=== PATIENT | male | born 1990 | race Caucasian/White ===

== ENCOUNTER 2020-10-31 08:21 | Emergency (ER) | payer MEDICAID, SELFPAY ==
--- NOTE | ~2020-10-31 | XR_ITS ---
EXAMINATION: XR CHEST CLINICAL INFORMATION: Coughing. COMPARISON: None TECHNIQUE: Frontal view of the chest was obtained. FINDINGS: The lungs are well-expanded and clear of acute process. The heart size and pulmonary vascularity is normal. No gross bony abnormality seen. XR/XR chest 1V IMPRESSION: Unremarkable chest exam.
--- NOTE | ~2020-10-31 | CT_ITS ---
EXAMINATION: CT ANGIOGRAM OF THE CHEST WITH AND WITHOUT CONTRAST (CT PULMONARY ANGIOGRAM FOR PE) CLINICAL INFORMATION: Reason for Exam Cough. elevated D-dimer. PE? COMPARISON: Previous chest x-ray from earlier the same day TECHNIQUE: Prior to contrast administration, noncontrast localization images were obtained. Subsequently, multidetector volumetric imaging was performed from the thoracic inlet to below the diaphragms following the administration of 65 mL Omnipaque 350 intravenous contrast. No contrast reaction reported Sagittal, coronal, and MIP oblique sagittal reformatted images were obtained on the CT workstation, uploaded to PACS, and reviewed. This CT examination was performed using dose optimization techniques as appropriate, variously including the following: *Automated exposure control *Adjustment of mA and/or kV according to patient size (this includes techniques or standardized protocols for targeted exams where dose is matched to indication/reason for exam; i.e. extremities or head) *Use of iterative reconstruction technique Total exam dose-length product 391 mGy-cm FINDINGS: QUALITY OF STUDY/CONTRAST BOLUS: Satisfactory. PULMONARY ARTERIES: No central or segmental pulmonary emboli. THORACIC AORTA: No aneurysm or dissection. LUNG: No focal consolidation, nodules or masses. PLEURA: No pleural effusion or pneumothorax. MEDIASTINUM: Normal heart size. No pericardial effusion. No hilar or mediastinal lymphadenopathy. No evidence of septal bowing or right heart strain. CHEST WALL/AXILLA: No axillary or internal mammary lymphadenopathy. OSSEOUS STRUCTURES: No acute or suspicious osseous abnormality. UPPER ABDOMEN: Unremarkable. No reflux of contrast into the hepatic veins to suggest elevated right heart pressures. CT/CT angio chest PE protocol IMPRESSION: No evidence of pulmonary embolism. VTE: negative
[2020-10-31 08:24] VITALS: BP 110/76; PULSE 84; RESP 18; TEMP 35.8; O2SAT 98; BMI 27.3
--- NOTE | 2020-10-31 09:56 | ECG_ITS ---
Test Reason : ASTHMA Blood Pressure : / mmHG Vent. Rate : 065 BPM Atrial Rate : 065 BPM P-R Int : 168 ms QRS Dur : 096 ms QT Int : 432 ms P-R-T Axes : 056 058 055 degrees QTc Int : 449 ms Normal sinus rhythm Normal ECG No significant changes when compared with the previous EKG of 13 nov 2018 Referred By: Dominguez Tovar Electronically Signed By:JOSH BRAUN
[2020-10-31] MEDS: Magnesium Sulfate/H2O 2 GM/50 ML PIGGYBACK IV (10:21)
[2020-10-31] MEDS: methylPREDNISolone Sod Succ 125 MG/2 ML VIAL IVPUSH (10:21)
--- NOTE | 2020-10-31 10:22 | ED.ASTHMA ---
HPI - Asthma General Chief Complaint: Asthma Stated Complaint: asthma Time Seen by Provider: 10/31/20 09:56 Source: patient Mode of arrival: ambulatory Limitations: no limitations History of Present Illness HPI Narrative: Patient presents to the ED for coughing for the past 3 days for shortness of breath. Patient states history of asthma and no relief with albuterol inhaler. Patient denies any fever, chills, swelling of lower extremities, calf pain. Patient is not vaccinated against the COVID-19 virus. Patient states history of asthma, but never intubated. Patient admitted for asthma last year Related Data Previous Rx's Medication Instructions Recorded albuterol sulfate 2 puff INHALATION Q6H PRN #8.5 g 10/31/20 albuterol sulfate 2.5 mg INHALATION QID PRN #75 ml 10/31/20 benzonatate [Tessalon Perles] 100 mg PO TID PRN #18 cap 10/31/20 prednisone 40 mg PO DAILY 5 Days #10 tab 10/31/20 Allergies Allergy/AdvReac Type Severity Reaction Status Date / Time No Known Allergies Allergy Verified 10/31/20 08:23 [No Known Allergies*] Review of Systems Review of Systems: Yes all other systems are reviewed and are negative Constitutional: Constitutional: Reports as per HPI and Reports no additional constitutional complaints Eyes: Eyes: Reports as per HPI and Reports no additional eye complaints ENT: Reports system reviewed and no additional complaints, except as documented and Reports as per HPI Cardiovascular: Cardiovascular: Reports as per HPI and Reports no additional cardiovascular complaints Respiratory: Respiratory: Reports as per HPI, Reports no additional respiratory complaints and Reports cough Gastrointestinal: Gastrointestinal: Reports as per HPI and Reports no additional gastrointestinal complaints Genitourinary: Genitourinary: Reports no additional male genitourinary complaints and Reports as per HPI Musculoskeletal: Musculoskeletal: Reports no additional musculoskeletal complaints and Reports as per HPI Neurologic: Reports system reviewed and no additional complaints, except as documented and Reports as per HPI Psychiatric: Psychiatric: Reports no additional psychiatric complaints and Reports as per HPI PMFSH Past Medical History Medical History (Updated 10/31/20 @ 14:18 by IRVIN Neumann) Asthma Social History Social History Advance Directives: Yes Advance Directives Information Provided: Yes Advance Directives on File: No Physical Exam Vital Signs: Vital Signs: Last Vital Signs Temp 96.4 F L 10/31/20 08:24 Pulse 78 07/26/21 14:00 Resp 18 10/31/20 14:00 BP 110/76 10/31/20 08:24 Pulse Ox 98 10/31/20 14:00 Body Mass Index 27.3 Const: General: cooperative, healthy appearing, comfortable, no acute distress, well developed, alert, awake and Physically active Orientation/consciousness: patient oriented x3 HENMT: Head: Yes normal to inspection, Yes No palpable skull fracture present, Yes normocephalic and Yes atraumatic Eyes: General: appearance normal, both eyes and all related structures Neck: Neck: Yes normal visual inspection, Yes full ROM, Yes no lymphadenopathy, Yes no meningeal signs, Yes trachea midline, Yes supple and No tender Chest: Chest palpation & inspection: normal inspection of the chest and normal palpation of entire chest wall Resp: Effort & Inspection: normal respiratory effort and able to speak in complete sentences Auscultation: wheezes expiratory wheezes and inspiratory wheezes Cardio: Jugular venous distension: no JVD Heart sounds: S1 normal heart sound present and S2 normal heart sound present GI: Inspection: Yes normal to inspection and No abdominal wall ecchymosis Palpation (GI): Soft to palpation, not firm, nontender and not rigid : General: No CVA tenderness and Yes no CVA tenderness Back/Spine/Pelvis: Back: no CVA tenderness, No CVA tenderness and No back tenderness Skin: General skin exam: no rashes or lesions noted and elasticity normal Neuro: General: patient oriented x3, gait normal, no meningeal signs and CN's II-XI intact bilaterally Cranial nerves: Yes CN's II-XII intact bilaterally Extrem: Other: Lower extremities negative for swelling, calf pain, or pitting edema Psych: Appearance: grossly normal, well kempt and not disheveled Course Course Course Narrative: Patient having inspiratory and expiratory wheezing. Will have labs drawn. Albuterol, prednisone, and magnesium ordered. COVID swab ordered. D-dimer ordered due to inspiratory wheezing. Reevaluation(s) Reevaluation #1: Patient D-dimer came back elevated. Patient's troponin and BNP came back negative. EKG negative for STEMI. Chest x-ray negative for pneumonia. Patient will be sent for chest CT to rule out PE. Patient is not hypoxic. Patient is not in any respiratory distress. Time: 10:18 Reevaluation #2: Chest CT negative for PE. Patient feels better after asthma medication protocol MDM - Asthma MDM Narrative Medical decision making narrative: Asthma exacerbation Lab Data Result diagrams: 10/31/20 10:18 10/31/20 10:18 Labs: Lab Results 10/31/20 10/31/20 10/31/20 Range/Units 10:18 10:18 10:18 WBC 5.2 (4.8-10.8) X10*3/uL RBC 5.14 (4.60-5.80) X10*6/uL Hgb 15.2 (14.0-18.0) g/dl Hct 44.8 (42-52) % MCV 87.2 (80-98) fL MCH 29.6 (27.0-33.0) pg MCHC 33.9 (31.0-36.0) g/dl RDW 11.8 (11.0-16.0) % Plt Count 222 (160-400) X10*3/uL MPV 10.9 (9.4-12.4) fL Immature Gran % (Auto) 0.8 H (0.0-0.4) % Neut % (Auto) 64.1 (45-73) % Lymph % (Auto) 22.3 (20-40) % [place] % (Auto) 9.7 (2-11) % Eos % (Auto) 2.5 (0-4) % Baso % (Auto) 0.6 (0-2) % Lymph # (Auto) 1.2 (1.2-4.9) X10*3/uL [place] # (Auto) 0.5 (0.1-1.2) X10*3/uL Eos # (Auto) 0.1 (0.0-0.4) X10*3/uL Baso # (Auto) 0.0 (0.0-0.2) X10*3/uL Abs Immat Gran (auto) 0.04 H (0.00-0.03) X10*3/uL Absolute Neuts (auto) 3.3 (2.0-8.3) X10*3/uL Absolute Nucleated RBC 0.000 (0.0-0.012) X10*3/uL Nucleated RBC % (auto) 0.0 (0.0-0.2) /100WBC PT 11.6 (9.9-13.0) SEC INR 1.0 (0.9-1.1) APTT 37.7 (24.1-38.0) SEC D-Dimer 445 NG/ML Sodium 139 (135-145) mmol/L Potassium 4.8 (3.3-5.1) mmol/L Chloride 100 (96-108) mmol/L Carbon Dioxide 31 H (22-29) mmol/L Anion Gap 13 (12-20) BUN 17 H (9-16) mg/dL Creatinine 0.93 (0.5-1.4) mg/dL Estim Creat Clear Calc 113.3 Estimated GFR > 60 Random Glucose 98 (60-115) mg/dL Calcium 9.8 (8.4-10.2) mg/dL Total Bilirubin 0.4 (0.0-1.0) mg/dL AST 49 H (5-37) U/L ALT 78 H (0-40) U/L Alkaline Phosphatase 86 (39-117) U/L Troponin I High Sens (<3.5-35.0) ng/L B-Natriuretic Peptide (<100) pg/mL Total Protein 8.1 H (6.5-8.0) g/dL Albumin 4.7 (3.5-5.0) g/dL Coronavirus (PCR) (Negative) Influenza Type A (PCR) (Negative) Influenza Type B (PCR) (Negative) RSV RNA Qual (PCR) (Negative) 10/31/20 10/31/20 Range/Units 10:18 10:55 WBC (4.8-10.8) X10*3/uL RBC (4.60-5.80) X10*6/uL Hgb (14.0-18.0) g/dl Hct (42-52) % MCV (80-98) fL MCH (27.0-33.0) pg MCHC (31.0-36.0) g/dl RDW (11.0-16.0) % Plt Count (160-400) X10*3/uL MPV (9.4-12.4) fL Immature Gran % (Auto) (0.0-0.4) % Neut % (Auto) (45-73) % Lymph % (Auto) (20-40) % [place] % (Auto) (2-11) % Eos % (Auto) (0-4) % Baso % (Auto) (0-2) % Lymph # (Auto) (1.2-4.9) X10*3/uL [place] # (Auto) (0.1-1.2) X10*3/uL Eos # (Auto) (0.0-0.4) X10*3/uL Baso # (Auto) (0.0-0.2) X10*3/uL Abs Immat Gran (auto) (0.00-0.03) X10*3/uL Absolute Neuts (auto) (2.0-8.3) X10*3/uL Absolute Nucleated RBC (0.0-0.012) X10*3/uL Nucleated RBC % (auto) (0.0-0.2) /100WBC PT (9.9-13.0) SEC INR (0.9-1.1) APTT (24.1-38.0) SEC D-Dimer NG/ML Sodium (135-145) mmol/L Potassium (3.3-5.1) mmol/L Chloride (96-108) mmol/L Carbon Dioxide (22-29) mmol/L Anion Gap (12-20) BUN (9-16) mg/dL Creatinine (0.5-1.4) mg/dL Estim Creat Clear Calc Estimated GFR Random Glucose (60-115) mg/dL Calcium (8.4-10.2) mg/dL Total Bilirubin (0.0-1.0) mg/dL AST (5-37) U/L ALT (0-40) U/L Alkaline Phosphatase (39-117) U/L Troponin I High Sens < 3.5 (<3.5-35.0) ng/L B-Natriuretic Peptide < 10 (<100) pg/mL Total Protein (6.5-8.0) g/dL Albumin (3.5-5.0) g/dL Coronavirus (PCR) NEGATIVE (Negative) Influenza Type A (PCR) NEGATIVE (Negative) Influenza Type B (PCR) NEGATIVE (Negative) RSV RNA Qual (PCR) NEGATIVE (Negative) ECG Data Interpretation: Normal sinus rhythm. Normal EKG. Ventricular rate 65. MD interval 168. QRS 96. QTC 449. Negative STEMI Discharge Plan Discharge Clinical Impression: Asthma with acute exacerbation Patient Disposition: Home, Self-Care Instructions: Asthma (ED) Additional Instructions: Jose an?lisis de belia result? negativo por ataque card?aco, lesi?n renal, anemia o sepsis. Jose CTA de t?rax result? negativa para embolia pulmonar. Jose hisopo COVID result? negativo. Elmira radiograf?a de t?rax result? normal. Ser? tratado edgardo elmira exacerbaci?n del asma. Regrese al servicio de urgencias de inmediato si tiene dolor de pecho, dificultad para respirar, hinchaz?n de las extremidades inferiores, tos con belia, fiebre intratable, escalofr?os, debilidad o cualquier otro s?ntoma preocupante. Prescriptions: New prednisone 20 mg tablet 40 mg PO DAILY 5 Days Qty: 10 RF: 0 benzonatate [Tessalon Perles] 100 mg capsule 100 mg PO TID PRN (Reason: cough) Qty: 18 RF: 0 albuterol sulfate 90 mcg/actuation HFA aerosol inhaler 2 puff inhalation Q6H PRN (Reason: shortness of breath or wheezing) Qty: 8.5 RF: 0 albuterol sulfate 2.5 mg /3 mL (0.083 %) solution for nebulization 2.5 mg inhalation QID PRN (Reason: asthma) Qty: 75 RF: 0 Referrals: [place] [Primary Care Provider] - 2 days (Asthma exacerbation) Interventions: ED Discharge Assessment Last Done: 10/31/20 15:01 Discharge Date/Time: 10/31/20 15:02 Print Language: Montserratian
[2020-10-31] MEDS: Albuterol/Iprat 2.5/0.5MG 3 ML AMPUL.NEB INHALE (10:26)
[2020-10-31 10:28] VITALS: PULSE 73; O2SAT 94
[2020-10-31 10:33] LABS: MANUAL DIFF FLAG NO
[2020-10-31 10:34] LABS: Basophils Percent Auto 0.6 % (0-2); Eosinophils Absolute Auto 0.1 X10*3/uL (0.0-0.4); Eosinophils Percent Auto 2.5 % (0-4); Hematocrit 44.8 % (42-52); Hemoglobin 15.2 g/dl (14.0-18.0); Imm Gran Abs Auto 0.04 X10*3/uL (0.00-0.03); Imm Gran Pct Auto 0.8 % (0.0-0.4); Lymphocytes Absolute Auto 1.2 X10*3/uL (1.2-4.9); Lymphocytes Percent Auto 22.3 % (20-40); Mean Corpuscular HGB Conc 33.9 g/dl (31.0-36.0); Mean Corpuscular Hemoglobin 29.6 pg (27.0-33.0); Mean Corpuscular Volume 87.2 fL (80-98); Mean Platelet Volume 10.9 fL (9.4-12.4); Monocytes Absolute Auto 0.5 X10*3/uL (0.1-1.2); Monocytes Percent Auto 9.7 % (2-11); Neutrophils Absolute Auto 3.3 X10*3/uL (2.0-8.3); Neutrophils Percent Auto 64.1 % (45-73); Platelet Count 222 X10*3/uL (160-400); Red Blood Count 5.14 X10*6/uL (4.60-5.80); Red Cell Distribution Width 11.8 % (11.0-16.0); White Blood Count 5.2 X10*3/uL (4.8-10.8)
[2020-10-31 10:42] LABS: Prothrombin Time 11.6 SEC (9.9-13.0)
[2020-10-31 10:45] LABS: D Dimer 445 NG/ML; Partial Thromboplastin Time 37.7 SEC (24.1-38.0)
[2020-10-31 11:05] LABS: B Type Natriuretic Peptide < 10 pg/mL (<100); Troponin-I High Sensitivity < 3.5 ng/L (<3.5-35.0)
[2020-10-31 11:10] LABS: Alanine Aminotransferase 78 U/L (0-40); Albumin Level 4.7 g/dL (3.5-5.0); Alkaline Phosphatase 86 U/L (39-117); Anion Gap 13 (12-20); Aspartate Amino Transferase 49 U/L (5-37); Bilirubin Total 0.4 mg/dL (0.0-1.0); Blood Urea Nitrogen 17 mg/dL (9-16); Calcium 9.8 mg/dL (8.4-10.2); Carbon Dioxide 31 mmol/L (22-29); Chloride 100 mmol/L (96-108); Creatinine Clr Calc Pharmacy 113.3; Estimated Glomerular Filt Rate > 60; Glucose Random 98 mg/dL (60-115); Potassium 4.8 mmol/L (3.3-5.1); Sodium 139 mmol/L (135-145); Total Protein 8.1 g/dL (6.5-8.0)
[2020-10-31 11:45] LABS: Influenza A PCR NEGATIVE (Negative); Influenza B PCR NEGATIVE (Negative); Resp Syncy Virus RNA Qual PCR NEGATIVE (Negative); SARS COV2 PCR INHOUSE NEGATIVE (Negative)
[2020-10-31 14:00] VITALS: PULSE 78; RESP 18; O2SAT 98
== END 2020-10-31 15:02 | disposition home or self-care (01) ==
PROVIDERS: Physician Assistant; Emergency Provider Emergency Medicine Emergency Medical Services
DX: J45.901 Unspecified asthma with (acute) exacerbation (principal); Z20.822 Contact with and (suspected) exposure to COVID-19; Z79.899 Other long term (current) drug therapy
CPT/HCPCS: 0241U; 36415; 71045; 71275; 80053; 83880; 84484; 85025; 85379; 85610; 85730; 93005; 94640; 96365; 96366; 96375; 99284; J2930; J3475

== ENCOUNTER 2020-11-15 08:02 | Emergency (ER) | payer MEDICAID, SELFPAY ==
--- NOTE | ~2020-11-15 | XR_ITS ---
EXAMINATION: XR CHEST CLINICAL INFORMATION: Shortness of breath/cough COMPARISON: October 31, 2020 TECHNIQUE: AP portable view of the chest was obtained. FINDINGS: No significant abnormality is noted involving the heart, lungs, mediastinum, bony thorax or soft tissues. XR/XR chest 1V IMPRESSION: No acute disease.
[2020-11-15 09:08] VITALS: BP 138/100; PULSE 86; RESP 16; TEMP 36.8; O2SAT 95; BMI 28.3
--- NOTE | 2020-11-15 09:14 | ECG_ITS ---
Test Reason : ASTHMA Blood Pressure : / mmHG Vent. Rate : 073 BPM Atrial Rate : 073 BPM P-R Int : 150 ms QRS Dur : 106 ms QT Int : 414 ms P-R-T Axes : 065 050 045 degrees QTc Int : 456 ms Normal sinus rhythm Normal ECG When compared with ECG of 31-OCT-2020 10:42, No significant change was found Referred By: Generic ED Physician Electronically Signed By:CATERINA LAWRENCE MD
[2020-11-15 09:33] LABS: MANUAL DIFF FLAG NO
[2020-11-15 09:35] LABS: Basophils Percent Auto 0.2 % (0-2); Eosinophils Percent Auto 0.2 % (0-4); Hematocrit 39.8 % (42-52); Hemoglobin 13.3 g/dl (14.0-18.0); Imm Gran Abs Auto 0.02 X10*3/uL (0.00-0.03); Imm Gran Pct Auto 0.4 % (0.0-0.4); Lymphocytes Absolute Auto 0.8 X10*3/uL (1.2-4.9); Lymphocytes Percent Auto 14.1 % (20-40); Mean Corpuscular HGB Conc 33.4 g/dl (31.0-36.0); Mean Corpuscular Hemoglobin 29.4 pg (27.0-33.0); Mean Corpuscular Volume 88.1 fL (80-98); Mean Platelet Volume 10.8 fL (9.4-12.4); Monocytes Absolute Auto 0.7 X10*3/uL (0.1-1.2); Monocytes Percent Auto 12.8 % (2-11); Neutrophils Percent Auto 72.3 % (45-73); Platelet Count 164 X10*3/uL (160-400); Red Blood Count 4.52 X10*6/uL (4.60-5.80); Red Cell Distribution Width 12.7 % (11.0-16.0); White Blood Count 5.5 X10*3/uL (4.8-10.8)
[2020-11-15 09:56] LABS: Anion Gap 12 (12-20); Blood Urea Nitrogen 19 mg/dL (9-16); Calcium 8.9 mg/dL (8.4-10.2); Carbon Dioxide 28 mmol/L (22-29); Chloride 104 mmol/L (96-108); Estimated Glomerular Filt Rate > 60; Glucose Random 97 mg/dL (60-115); Potassium 3.4 mmol/L (3.3-5.1); Sodium 141 mmol/L (135-145)
[2020-11-15 10:14] LABS: Influenza A PCR NEGATIVE (Negative); Influenza B PCR NEGATIVE (Negative); Resp Syncy Virus RNA Qual PCR NEGATIVE (Negative); SARS COV2 PCR INHOUSE NEGATIVE (Negative)
--- NOTE | 2020-11-15 10:41 | ED_ITS ---
HPI - Asthma General Chief Complaint: Asthma Stated Complaint: Asthma Time Seen by Provider: 11/15/20 10:16 Source: patient Mode of arrival: ambulatory Limitations: no limitations History of Present Illness HPI Narrative: 30-year-old male who presents emergency department for evaluation of asthma exacerbation and cough. Patient states that he has been sick for approximately 3 days. He states that he has been feeling short of breath and has had a cough which is productive thick yellow sputum. He denies any blood in the sputum. Denied chest pain. He denied fever, chills, nausea, vomiting. He denies dyspnea on exertion. He states he has been using his albuterol inhaler frequently and he has run out at this time. The patient was seen in the emergency department on 10/31/2020 with similar complaints. Patient at that time was treated with prednisone and albuterol with improvement of his symptoms. Patient states that he has never been intubated. He states that he has been coughing was not able to go to work today therefore came to emergency department for evaluation. Related Data Previous Rx's Medication Instructions Recorded albuterol sulfate 2.5 mg INHALATION QID PRN #75 ml 10/31/20 albuterol sulfate 90 mcg/actuation 2 puff INHALATION Q6H PRN #8.5 g 10/31/20 aerosol inhaler benzonatate 100 mg capsule 100 mg PO TID PRN #18 cap 10/31/20 (Paolo Cristobal) prednisone 20 mg tablet 40 mg PO DAILY 5 Days #10 tab 10/31/20 albuterol sulfate 90 mcg/actuation 2 puff INHALATION Q4-6H PRN #8.5 g 11/15/20 aerosol inhaler prednisone 20 mg tablet 60 mg PO DAILY 5 Days #15 tab 11/15/20 Allergies Allergy/AdvReac Type Severity Reaction Status Date / Time No Known Allergies Allergy Verified 11/15/20 09:07 [No Known Allergies*] Review of Systems Review of Systems: Yes all other systems are reviewed and are negative [facility] Past Medical History [facility] Narrative: Past medical history: Asthma, hepatitis-C, opiate and cocaine use disorder. Social history: Patient denies tobacco use. He denies alcohol use. He also denies drug use. He states that he is currently in a methadone program and has not used underwent of cocaine for 7 months. Medical History Asthma Social History Social History Advance Directives: Yes Advance Directives Information Provided: Yes Advance Directives on File: No Physical Exam Vital Signs: Vital Signs: Last Vital Signs Temp 98.2 F 11/15/20 09:08 Pulse 86 11/15/20 09:08 Resp 16 11/15/20 09:08 BP 138/100 H 11/15/20 09:08 Pulse Ox 95 11/15/20 09:08 Body Mass Index 28.3 Const: General: cooperative and no acute distress Orientatio n/consciousness: oriented to person and oriented to place Limitations: no limitations HENMT: Head: Yes normal to inspection, Yes normocephalic and Yes atraumatic Ears: external ears normal General nose exam: Normal external nose present Face and sinus: Yes normal facial exam Mouth: Normal oral and palatal mucosa present Throat: Yes posterior oropharynx normal Eyes: General: appearance normal, both eyes and all related structures Pupils: Equal, round and reactive pupils present Neck: Neck: Yes normal visual inspection, Yes no lymphadenopathy, Yes trachea midline and Yes supple Chest: Chest palpation & inspection: normal inspection of the chest and normal palpation of entire chest wall Resp: Effort & Inspection: normal respiratory effort and able to speak in complete sentences Auscultation: no crackles, no rales, no rhonchi and wheezes (Diffuse) Cardio: Rate: regular rate Rhythm: regular rhythm Heart sounds: S1 normal heart sound present, S2 normal heart sound present and no murmurs GI: Inspection: Yes normal to inspection Palpation (GI): Soft to palpation, nontender and no guarding Auscultation: normal bowel sounds : General: Yes no CVA tenderness Back/Spine/Pelvis: Back: no CVA tenderness Skin: General skin exam: no rashes or lesions noted Neuro: General: oriented to person and oriented to place Cranial nerves: Yes CN's II-XII intact bilaterally and Yes Equal, round and reactive pupils present Cognition (Neuro): normal cognition Motor exam (neuro): 5/5 motor strength present throughout Extrem: General: Yes normal to inspection Psych: Appearance: grossly normal Speech and movement: Normal speech and movement present Affect: normal affect Attitude: cooperative Thought process: Normal thought process present Thought content: Normal thought content present Course Course Course Narrative: 30-year-old male who presents emergency department for evaluation of asthma exacerbation and productive cough. Vital signs revealed an elevated blood pressure of 138/100 otherwise were unremarkable. Lung exam revealed diffuse wheezing with good inspiratory and expiratory flow. Patient is not appear to be in respiratory distress. Patient's presentation is consistent with an asthma exacerbation. The patient was started on prednisone 60 mg once a day for 5 days and an albuterol inhaler 2 puffs every 4 hours as needed for shortness of breath. The patient was given verbal and printed instructions prior to discharge. The patient was advised to follow-up with his PCP in 2 days and to return to the emergency department if his symptoms get worse or if he develops any new symptoms that are concerning to him. MDM - Asthma Lab Data Result diagrams: 11/15/20 09:11/15/20 09:29 Labs: Lab Results 11/15/20 11/15/20 11/15/20 Range/Units 09: 09: 09:29 WBC 5.5 (4.8-10.8) X10*3/uL RBC 4.52 L (4.60-5.80) X10*6/uL Hgb 13.3 L (14.0-18.0) g/dl Hct 39.8 L (42-52) % MCV 88.1 (80-98) fL MCH 29.4 (27.0-33.0) pg MCHC 33.4 (31.0-36.0) g/dl RDW 12.7 (11.0-16.0) % Plt Count 164 D (160-400) X10*3/uL MPV 10.8 (9.4-12.4) fL Immature Gran % (Auto) 0.4 (0.0-0.4) % Neut % (Auto) 72.3 (45-73) % Lymph % (Auto) 14.1 L (20-40) % [place] % (Auto) 12.8 H (2-11) % Eos % (Auto) 0.2 (0-4) % Baso % (Auto) 0.2 (0-2) % Lymph # (Auto) 0.8 L (1.2-4.9) X10*3/uL [place] # (Auto) 0.7 (0.1-1.2) X10*3/uL Eos # (Auto) 0.0 (0.0-0.4) X10*3/uL Baso # (Auto) 0.0 (0.0-0.2) X10*3/uL Abs Immat Gran (auto) 0.02 (0.00-0.03) X10*3/uL Absolute Neuts (auto) 4.0 (2.0-8.3) X10*3/uL Absolute Nucleated RBC 0.000 (0.0-0.012) X10*3/uL Nucleated RBC % (auto) 0.0 (0.0-0.2) /100WBC Sodium 141 (135-145) mmol/L Potassium 3.4 D (3.3-5.1) mmol/L Chloride 104 (96-108) mmol/L Carbon Dioxide 28 (22-29) mmol/L Anion Gap 12 (12-20) BUN 19 H (9-16) mg/dL Creatinine 0.88 (0.5-1.4) mg/dL Estim Creat Clear Calc 131.0 Estimated GFR > 60 Random Glucose 97 (60-115) mg/dL Calcium 8.9 D (8.4-10.2) mg/dL Coronavirus (PCR) NEGATIVE (Negative) Influenza Type A (PCR) NEGATIVE (Negative) Influenza Type B (PCR) NEGATIVE (Negative) RSV RNA Qual (PCR) NEGATIVE (Negative) Discharge Plan Discharge Clinical Impression: Asthma with acute exacerbation Patient Disposition: Home, Self-Care Instructions: Asthma (ED) Additional Instructions: Your laboratory evaluation was normal. Your chest x-ray was normal with no evidence of pneumonia. Your COVID-19 test was negative. Take prednisone 20 mg pills, 3 pills once a day for 5 days. Use the albuterol inhaler 2 puffs every 4 hours as needed for shortness of breath. Follow-up with your doctor in 2 days. Please return to the emergency department if your symptoms get worse or if you develop any symptoms that are concerning to you. You should talk to your doctor about getting a referral to a stockroom coordinator the treats hepatitis-C. You should ask the pharmacy to schedule you for a COVID-19 vaccination 2 weeks from now. Prescriptions: New prednisone 20 mg tablet 60 mg PO DAILY 5 Days Qty: 15 RF: 0 albuterol sulfate 90 mcg/actuation HFA aerosol inhaler 2 puff inhalation Q4-6H PRN (Reason: shortness of breath or wheezing) Qty: 8.5 RF: 0 No Action prednisone 20 mg tablet 40 mg PO DAILY 5 Days Qty: 10 RF: 0 benzonatate [Tessalon Perles] 100 mg capsule 100 mg PO TID PRN (Reason: cough) Qty: 18 RF: 0 albuterol sulfate 90 mcg/actuation HFA aerosol inhaler 2 puff inhalation Q6H PRN (Reason: shortness of breath or wheezing) Qty: 8.5 RF: 0 albuterol sulfate 2.5 mg /3 mL (0.083 %) solution for nebulization 2.5 mg inhalation QID PRN (Reason: asthma) Qty: 75 RF: 0 Stand Alone Forms: Work/School Release
== END 2020-11-15 11:15 | disposition home or self-care (01) ==
PROVIDERS: Emergency Provider Emergency Medicine Emergency Medical Services
DX: J45.901 Unspecified asthma with (acute) exacerbation (principal); Z20.822 Contact with and (suspected) exposure to COVID-19; R06.02 Shortness of breath
CPT/HCPCS: 0241U; 36415; 71045; 80048; 85025; 93005; 99283; 99284

== ENCOUNTER 2021-10-07 19:58 | Emergency (ER) | payer MEDICAID, SELFPAY ==
--- NOTE | 2021-10-07 | ECG_ITS ---
Test Reason : CHEST PAIN Blood Pressure : / mmHG Vent. Rate : 109 BPM Atrial Rate : 109 BPM P-R Int : 152 ms QRS Dur : 098 ms QT Int : 344 ms P-R-T Axes : 078 074 069 degrees QTc Int : 463 ms Sinus tachycardia Nonspecific ST abnormality Borderline ECG When compared with ECG of 15-NOV-2020 09:25, Vent. rate has increased BY 36 BPM Referred By: Generic ED Physician Electronically Signed By:JOSH BRAUN
--- NOTE | ~2021-10-07 | XR_ITS ---
EXAMINATION: XR CHEST CLINICAL INFORMATION: Shortness of breath. Cough COMPARISON: 11/15/2020 TECHNIQUE: Frontal view of the chest was obtained. FINDINGS: Lungs are clear. No consolidation, pneumothorax, or pleural effusion. Cardiac and mediastinal contours are normal. Pulmonary vasculature is unremarkable. Osseous structures are unremarkable. XR/XR chest 1V IMPRESSION: No acute cardiopulmonary findings
[2021-10-07 20:47] VITALS: BP 117/96; PULSE 113; RESP 24; TEMP 36.3; O2SAT 89; BMI 25.8
[2021-10-07 21:33] LABS: Basophils Percent Auto 0.3 % (0-2); Eosinophils Percent Auto 0.1 % (0-4); Hematocrit 42.7 % (42.0-52.0); Hemoglobin 14.5 g/dl (14.0-18.0); Imm Gran Abs Auto 0.05 X10*3/uL (0.00-0.03); Imm Gran Pct Auto 0.4 % (0.0-0.4); Lymphocytes Absolute Auto 0.3 X10*3/uL (1.2-4.9); Lymphocytes Percent Auto 2.4 % (20-40); MANUAL DIFF FLAG SCAN; Mean Corpuscular Hemoglobin 29.2 pg (27.0-33.0); Mean Corpuscular Volume 86.1 fL (80.0-98.0); Mean Platelet Volume 11.6 fL (9.4-12.4); Monocytes Absolute Auto 0.3 X10*3/uL (0.1-1.2); Monocytes Percent Auto 2.4 % (2-11); Neutrophils Absolute Auto 11.2 x10*3/uL (2.0-8.3); Neutrophils Percent Auto 94.4 % (45-73); Platelet Count 210 X10*3/uL (160-400); Red Blood Count 4.96 X10*6/uL (4.60-5.80); Red Cell Distribution Width 11.9 % (11.0-16.0); SCAN SMEAR FLAG 1; White Blood Count 11.9 X10*3/uL (4.8-10.8)
[2021-10-07 21:35] LABS: Alanine Aminotransferase 13 U/L (0-40); Albumin Level 4.6 g/dL (3.5-5.0); Alkaline Phosphatase 82 U/L (39-117); Anion Gap 15 (12-20); Aspartate Amino Transferase 22 U/L (5-37); Bilirubin Total 0.6 mg/dL (0.0-1.0); Blood Urea Nitrogen 14 mg/dL (9-16); Calcium 9.3 mg/dL (8.4-10.2); Carbon Dioxide 26 mmol/L (22-29); Chloride 101 mmol/L (96-108); Creatinine Clr Calc Pharmacy 103.4; Estimated Glomerular Filt Rate > 60; Glucose Random 119 mg/dL (60-115); Potassium 3.8 mmol/L (3.3-5.1); Sodium 138 mmol/L (135-145); Total Protein 7.7 g/dL (6.5-8.0)
[2021-10-07 21:39] LABS: Lactic Acid 2.7 mmol/L (0.5-2.0)
[2021-10-07 22:00] VITALS: BP 127/75; PULSE 108; RESP 15; O2SAT 94
--- NOTE | 2021-10-07 22:09 | ED.ASTHMA ---
HPI - Asthma General Chief Complaint: Asthma Stated Complaint: Asthma Issues Time Seen by Provider: 10/07/21 21:58 Source: patient and laboratory chemist Mode of arrival: ambulatory Limitations: no limitations History of Present Illness HPI Narrative: 31-year-old male with history of asthma came in for evaluation of asthma exacerbation. Patient with history of asthma nonsmoker only smoked marijuana, patient ran out of albuterol via nebulizer, patient feels diffuse chest tightness and wheezing with air hunger, patient was hypoxic 89% in the room air in the ED. Related Data Previous Rx's Medication Instructions Recorded albuterol sulfate 2.5 mg (3 mL) inhalation QID PRN 10/31/20 asthma #75 mL albuterol sulfate 90 mcg/actuation 2 puff inhalation Q6H PRN 10/31/20 aerosol inhaler shortness of breath or wheezing #8.5 grams benzonatate 100 mg capsule 100 mg PO TID PRN cough #18 caps 10/31/20 (Paolo Cristobal) prednisone 20 mg tablet 40 mg PO DAILY 5 days #10 tabs 10/31/20 albuterol sulfate 90 mcg/actuation 2 puff inhalation Q4-6H PRN 11/15/20 aerosol inhaler shortness of breath or wheezing #8.5 grams prednisone 20 mg tablet 60 mg PO DAILY 5 days #15 tabs 11/15/20 albuterol sulfate 90 mcg/actuation 1 inh inhalation QID PRN shortness 10/07/21 aerosol inhaler of breath or wheezing #8.5 grams prednisone 20 mg tablet 20 mg PO BID #10 tabs 10/07/21 Allergies Allergy/AdvReac Type Severity Reaction Status Date / Time No Known Allergies Allergy Verified 10/07/21 20:51 [No Known Allergies*] Review of Systems Review of Systems: All other systems are reviewed and are negative Constitutional: Reports as per HPI and Reports no additional constitutional complaints Eyes: Reports as per HPI and Reports no additional eye complaints Reports system reviewed and no additional complaints, except as documented Cardiovascular: Reports as per HPI and Reports no additional cardiovascular complaints Respiratory: Reports as per HPI and Reports no additional respiratory complaints Gastrointestinal: Reports as per HPI and Reports no additional gastrointestinal complaints Genitourinary: Reports no additional female genitourinary complaints Musculoskeletal: Reports no additional musculoskeletal complaints Skin/Breast: Reports system reviewed and no additional complaints, except as docu Psychiatric: Reports no additional psychiatric complaints Endocrine: Reports no additional endocrine complaints Hematologic/Lymphatic: Reports no additional hematologic/lymphatic complaints Allergic/Immunologic: Reports no additional allergic/immunologic complaints Reports system reviewed and no additional complaints, except as documented and Reports Abnormal speech present [facility] Past Medical History Medical History Asthma Social History Social History Advance Directives: No Advance Directives Information Provided: Yes Physical Exam Vital Signs: Vital Signs: Last Vital Signs Temp 97.3 F 10/07/21 20:47 Pulse 99 10/07/21 22:24 Resp 16 10/07/21 22:24 BP 127/75 10/07/21 22:00 Pulse Ox 94 10/07/21 22:00 O2 Del Method 10/07/21 22:00 BMI result Body Mass Index 25.8 Vital signs have been reviewed as appeared to be correct. Blood pressure normal. Heart rate elevated. Respiration rate elevated. Temperature normal. Oxygen saturation low . Appearance: Alert. Oriented X3. No acute distress. Head: Normal external exam. Normocephalic. Atraumatic. No Carreon signs noted. No raccoon eyes noted Eyes: PERRLA. EOMI. Conjunctiva and sclera normal. Eyelids normal. ENT: TM's Normal. Pharynx normal. Uvula midline. Moist mucous membranes. No trismus noted. No drooling noted. No muffled voice noted. Neck: Normal inspection. Neck supple. FROM. No adenopathy. Thyroid Normal. No meningeal signs. No neck mass noted. CVS: Normal heart rate and rhythm. Heart sound normal. No murmurs noted. Pulses normal throughout. Respiratory: No respiratory distress. Painless inspiration. Diffuse expiratory wheezing with prolonged expiration.. Chest nontender. No accessory muscle usage noted or decreased air movement noted. Abdomen: Soft and nontender. Bowel sounds normal in all 4 quadrants. No distention noted. No organomegaly noted. No visible injury noted. Back: No CVA tenderness. Full range of motion noted. Skin: Skin warm and dry. Normal skin color. Normal skin turgor. No rashes/lesions/lacerations noted. Extremities: No lower extremity edema. Extremities exhibit normal range of motion. Extremities nontender. Neuro: Oriented X 3. Cranial nerve exam: II-XII are grossly intact No motor deficit. No sensory deficit. Reflexes normal. Course Course Course Narrative: 31 years old male came in with acute asthma exacerbation, patient has 1 remaining of hypoxia 89% on room air, patient received bronchodilator and prednisone in the emergency department reportedly he feels better, the initial plan is to admit the patient but patient adamantly declining admission because he has his 's car that she will need to travel tomorrow morning for her job, patient fully understood the risk of not staying in the hospital. Patient will return if symptoms gets worse. Lactic acidosis is improving and it is secondary to multiple doses of albuterol. MDM - Asthma Lab Data Attestation: I reviewed the patient's lab results. Result diagrams: 10/07/21 21:06 10/07/21 21:05 Labs: Lab Results 10/07/21 10/07/21 10/07/21 Range/Units 21:05 21:06 21:06 WBC 11.9 H (4.8-10.8) X10*3/uL RBC 4.96 (4.60-5.80) X10*6/uL Hgb 14.5 (14.0-18.0) g/dl Hct 42.7 (42.0-52.0) % MCV 86.1 (80.0-98.0) fL MCH 29.2 (27.0-33.0) pg MCHC 34.0 (31.0-36.0) g/dl RDW 11.9 (11.0-16.0) % Plt Count 210 (160-400) X10*3/uL MPV 11.6 (9.4-12.4) fL Immature Gran % (Auto) 0.4 (0.0-0.4) % Neut % (Auto) 94.4 H (45-73) % Lymph % (Auto) 2.4 L (20-40) % Dawes % (Auto) 2.4 (2-11) % Eos % (Auto) 0.1 (0-4) % Baso % (Auto) 0.3 (0-2) % Lymph # (Auto) 0.3 L (1.2-4.9) X10*3/uL Dawes # (Auto) 0.3 (0.1-1.2) X10*3/uL Eos # (Auto) 0.0 (0.0-0.4) X10*3/uL Baso # (Auto) 0.0 (0.0-0.2) X10*3/uL Abs Immat Gran (auto) 0.05 H (0.00-0.03) X10*3/uL Absolute Neuts (auto) 11.2 H (2.0-8.3) x10*3/uL Absolute Nucleated RBC 0.000 (0.0-0.012) X10*3/uL Nucleated RBC % (auto) 0.0 (0.0-0.2) /100WBC Smear Tech's Comments VERIFIED Sodium 138 (135-145) mmol/L Potassium 3.8 (3.3-5.1) mmol/L Chloride 101 (96-108) mmol/L Carbon Dioxide 26 (22-29) mmol/L Anion Gap 15 (12-20) BUN 14 (9-16) mg/dL Creatinine 1.01 (0.5-1.4) mg/dL Estim Creat Clear Calc 103.4 Estimated GFR > 60 Random Glucose 119 H (60-115) mg/dL Lactic Acid (0.5-2.0) mmol/L Calcium 9.3 (8.4-10.2) mg/dL Total Bilirubin 0.6 (0.0-1.0) mg/dL AST 22 D (5-37) U/L ALT 13 (0-40) U/L Alkaline Phosphatase 82 (39-117) U/L Troponin I High Sens (<3.5-35.0) ng/L Total Protein 7.7 (6.5-8.0) g/dL Albumin 4.6 (3.5-5.0) g/dL COVID-19 (RUBI) (Negative) COVID-19 Clin Com Influenza Type A (PACO) Negative (Negative) Influenza Type B (PACO) Negative (Negative) Influenza A & B Note See Note 10/07/21 10/07/21 10/07/21 Range/Units 21:06 21:06 21:06 WBC (4.8-10.8) X10*3/uL RBC (4.60-5.80) X10*6/uL Hgb (14.0-18.0) g/dl Hct (42.0-52.0) % MCV (80.0-98.0) fL MCH (27.0-33.0) pg MCHC (31.0-36.0) g/dl RDW (11.0-16.0) % Plt Count (160-400) X10*3/uL MPV (9.4-12.4) fL Immature Gran % (Auto) (0.0-0.4) % Neut % (Auto) (45-73) % Lymph % (Auto) (20-40) % Dawes % (Auto) (2-11) % Eos % (Auto) (0-4) % Baso % (Auto) (0-2) % Lymph # (Auto) (1.2-4.9) X10*3/uL Dawes # (Auto) (0.1-1.2) X10*3/uL Eos # (Auto) (0.0-0.4) X10*3/uL Baso # (Auto) (0.0-0.2) X10*3/uL Abs Immat Gran (auto) (0.00-0.03) X10*3/uL Absolute Neuts (auto) (2.0-8.3) x10*3/uL Absolute Nucleated RBC (0.0-0.012) X10*3/uL Nucleated RBC % (auto) (0.0-0.2) /100WBC Smear Tech's Comments Sodium (135-145) mmol/L Potassium (3.3-5.1) mmol/L Chloride (96-108) mmol/L Carbon Dioxide (22-29) mmol/L Anion Gap (12-20) BUN (9-16) mg/dL Creatinine (0.5-1.4) mg/dL Estim Creat Clear Calc Estimated GFR Random Glucose (60-115) mg/dL Lactic Acid 2.7 H* (0.5-2.0) mmol/L Calcium (8.4-10.2) mg/dL Total Bilirubin (0.0-1.0) mg/dL AST (5-37) U/L ALT (0-40) U/L Alkaline Phosphatase (39-117) U/L Troponin I High Sens < 3.5 (<3.5-35.0) ng/L Total Protein (6.5-8.0) g/dL Albumin (3.5-5.0) g/dL COVID-19 (RUBI) Negative (Negative) COVID-19 Clin Com See Note Influenza Type A (PACO) (Negative) Influenza Type B (PACO) (Negative) Influenza A & B Note 10/07/21 Range/Units 22:27 WBC (4.8-10.8) X10*3/uL RBC (4.60-5.80) X10*6/uL Hgb (14.0-18.0) g/dl Hct (42.0-52.0) % MCV (80.0-98.0) fL MCH (27.0-33.0) pg MCHC (31.0-36.0) g/dl RDW (11.0-16.0) % Plt Count (160-400) X10*3/uL MPV (9.4-12.4) fL Immature Gran % (Auto) (0.0-0.4) % Neut % (Auto) (45-73) % Lymph % (Auto) (20-40) % Dawes % (Auto) (2-11) % Eos % (Auto) (0-4) % Baso % (Auto) (0-2) % Lymph # (Auto) (1.2-4.9) X10*3/uL Dawes # (Auto) (0.1-1.2) X10*3/uL Eos # (Auto) (0.0-0.4) X10*3/uL Baso # (Auto) (0.0-0.2) X10*3/uL Abs Immat Gran (auto) (0.00-0.03) X10*3/uL Absolute Neuts (auto) (2.0-8.3) x10*3/uL Absolute Nucleated RBC (0.0-0.012) X10*3/uL Nucleated RBC % (auto) (0.0-0.2) /100WBC Smear Tech's Comments Sodium (135-145) mmol/L Potassium (3.3-5.1) mmol/L Chloride (96-108) mmol/L Carbon Dioxide (22-29) mmol/L Anion Gap (12-20) BUN (9-16) mg/dL Creatinine (0.5-1.4) mg/dL Estim Creat Clear Calc Estimated GFR Random Glucose (60-115) mg/dL Lactic Acid 2.3 H* (0.5-2.0) mmol/L Calcium (8.4-10.2) mg/dL Total Bilirubin (0.0-1.0) mg/dL AST (5-37) U/L ALT (0-40) U/L Alkaline Phosphatase (39-117) U/L Troponin I High Sens (<3.5-35.0) ng/L Total Protein (6.5-8.0) g/dL Albumin (3.5-5.0) g/dL COVID-19 (RUBI) (Negative) COVID-19 Clin Com Influenza Type A (PACO) (Negative) Influenza Type B (PACO) (Negative) Influenza A & B Note Imaging Data Chest x-ray: Attestation: I personally reviewed and interpreted this imaging study as follows: Radiologist's impression: No acute cardiopulmonary findings. Discharge Plan Discharge Clinical Impression: Asthma with acute exacerbation Patient Disposition: Home, Self-Care Instructions: Wheezing (ED) Prescriptions: New prednisone 20 mg tablet 20 mg PO BID Qty: 10 0RF albuterol sulfate 90 mcg/actuation HFA aerosol inhaler 1 inh inhalation QID PRN (Reason: shortness of breath or wheezing) Qty: 8.5 0RF No Action prednisone 20 mg tablet 40 mg PO DAILY 5 Days Qty: 10 0RF benzonatate [Tessalon Perles] 100 mg capsule 100 mg PO TID PRN (Reason: cough) Qty: 18 0RF albuterol sulfate 90 mcg/actuation HFA aerosol inhaler 2 puff inhalation Q6H PRN (Reason: shortness of breath or wheezing) Qty: 8.5 0RF albuterol sulfate 2.5 mg /3 mL (0.083 %) solution for nebulization 2.5 mg inhalation QID PRN (Reason: asthma) Qty: 75 0RF prednisone 20 mg tablet 60 mg PO DAILY 5 Days Qty: 15 0RF albuterol sulfate 90 mcg/actuation HFA aerosol inhaler 2 puff inhalation Q4-6H PRN (Reason: shortness of breath or wheezing) Qty: 8.5 0RF Referrals: [facility] [Primary Care Provider] - Stand Alone Forms: Work/School Release
[2021-10-07 22:10] LABS: COVID-19 Test Negative (Negative); IDNOW Serial# 9DD0AD1C
[2021-10-07 22:11] LABS: IDNOW Serial# 16C4AD1C; Influenza A Negative (Negative); Influenza B2 Negative (Negative)
[2021-10-07 22:20] LABS: Troponin-I High Sensitivity < 3.5 ng/L (<3.5-35.0)
[2021-10-07] MEDS: Albuterol Sulfate (0.083%) 2.5 MG/3 ML VIAL.NEB 5 MG INHALE (22:23)
[2021-10-07 22:24] VITALS: PULSE 99; RESP 16; O2SAT 93
[2021-10-07] MEDS: Albuterol/Iprat 2.5/0.5MG 3 ML AMPUL.NEB INHALE (22:24)
[2021-10-07 22:28] LABS: SLIDE REVIEW VERIFIED
[2021-10-07] MEDS: methylPREDNISolone Sod Succ 125 MG/2 ML VIAL IVPUSH (22:40)
[2021-10-07] MEDS: Magnesium Sulfate/H2O 2 GM/50 ML PIGGYBACK IV (22:42)
[2021-10-07 22:56] LABS: Lactic Acid 2.3 mmol/L (0.5-2.0)
[2021-10-07 23:12] LABS: Reflex Lactate? Lactic Acid Added
[2021-10-08 00:31] VITALS: BP 118/73; PULSE 106; RESP 11; TEMP 36.1; O2SAT 92
[2021-10-08 00:33] LABS: Reflex Lactate? Lactic Acid Added
== END 2021-10-08 00:36 | disposition home or self-care (01) ==
PROVIDERS: Emergency Provider Emergency Medicine
DX: J45.901 Unspecified asthma with (acute) exacerbation (principal); Z20.822 Contact with and (suspected) exposure to COVID-19
CPT/HCPCS: 36415; 71045; 80053; 83605; 84484; 85025; 87040; 87502; 87635; 93005; 94640; 94644; 96365; 96366; 96375; 99284; J2930; J3475

== ENCOUNTER 2022-09-10 09:51 | Emergency (ER) | payer MEDICAID, SELFPAY ==
--- NOTE | ~2022-09-10 | CT_ITS ---
EXAMINATION: CT SOFT TISSUE NECK WITH CONTRAST CLINICAL INFORMATION: Left facial swelling. Evaluate for abscess versus inflammation of the parotid gland. COMPARISON: None available. TECHNIQUE: Following the intravenous administration of 60 mL of Omnipaque 350 intravenous contrast, helical imaging was performed in the axial plane with generation of coronal and sagittal reformatted images. This CT examination was performed using dose optimization techniques as appropriate, variously including the following: *Automated exposure control. *Adjustment of mA and/or kV according to patient size (this includes techniques or standardized protocols for targeted exams where dose is matched to indication/reason for exam; i.e. extremities or head). *Use of iterative reconstruction technique. DLP: 617 mGy-cm FINDINGS: There is ill-defined heterogeneous soft tissue seen in the left parapharyngeal space tracking laterally adjacent to the left pterygoid muscles, medial and lateral surfaces of the left mandible, posterior to the left masseter muscle and involves the deep lobe of the left parotid gland. There is asymmetric increased soft tissue in the left oropharyngeal wall. This is heterogeneous in attenuation with some high and low-attenuation components. Differential would include a left peritonsillar abscess or phlegmon in that blew out laterally into the left parapharyngeal space involving the deep lobe of the left parotid gland versus primary parotid mass with medial extension. High attenuation component could represent blood. Low-attenuation component extends inferiorly to the level of the epiglottis. There is effacement of the left side of the vallecula. The piriform sinuses and aryepiglottic folds are normal. The larynx is normal. The right parotid gland is normal. Visualized intracranial structures are normal. The orbits are normal. There is inflammatory change in the bilateral ethmoid sinuses. The temporomandibular joints and mastoid air cells are clear. There is poor dentition. Normal thyroid gland. There are prominent left cervical lymph nodes. Largest lymph node is a left submandibular/anterior jugulodigastric lymph node. This measures 1 cm in short axis. The salivary glands are otherwise normal. The thyroid gland is normal. Vascular structures are normal. The superior mediastinum is normal. The lung apices are clear. Bony structures are unremarkable. CT/CT soft tissue neck w IV con IMPRESSION: Abnormal heterogeneous soft tissue in the left parapharyngeal space tracking inferiorly to the level of the epiglottis and involving the deep lobe of the left parotid gland. Asymmetric increased soft tissue in the left oropharyngeal wall. Differential would include a left peritonsillar abscess or phlegmon in that blew out laterally into the parapharyngeal space versus primary parotid mass with medial extension. Prominent left cervical lymph nodes.
[2022-09-10 10:32] VITALS: BP 135/84; PULSE 81; RESP 20; TEMP 36.5; O2SAT 96; BMI 28.0
--- NOTE | 2022-09-10 13:44 | ED.GENADULT ---
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 Patient unsure with food was. Patient reports since then is having facial swelling and left-sided sore throat. Patient denies any difficulty breathing or difficulty swallowing. No fevers or chills. Related Data Previous Rx's Medication Instructions Recorded albuterol sulfate 2.5 mg/3 mL 2.5 mg (3 mL) inhalation QID PRN 10/31/20 (0.083 %) solution for nebulization asthma #75 mL albuterol sulfate 90 mcg/actuation 2 puff inhalation Q6H PRN 10/31/20 aerosol inhaler shortness of breath or wheezing #8.5 grams benzonatate 100 mg capsule 100 mg PO TID PRN cough #18 caps 10/31/20 (Tessaljennifer Cristobal) prednisone 20 mg tablet 40 mg PO DAILY 5 days #10 tabs 10/31/20 albuterol sulfate 90 mcg/actuation 2 puff inhalation Q4-6H PRN 11/15/20 aerosol inhaler shortness of breath or wheezing #8.5 grams prednisone 20 mg tablet 60 mg PO DAILY 5 days #15 tabs 11/15/20 albuterol sulfate 90 mcg/actuation 1 inh inhalation QID PRN shortness 10/07/21 aerosol inhaler of breath or wheezing #8.5 grams prednisone 20 mg tablet 20 mg PO BID #10 tabs 10/07/21 Allergies Allergy/AdvReac Type Severity Reaction Status Date / Time No Known Allergies Allergy Verified 10/07/21 20:51 [No Known Allergies*] Review of Systems Review of Systems: Yes all other systems are reviewed and are negative Constitutional: Constitutional: Reports no additional constitutional complaints, Denies body ache(s), Denies chills, Denies fever(s), Denies headache(s) and Denies weakness Eyes: Eyes: Reports no additional eye complaints and Denies change in vision ENT: Reports system reviewed and no additional complaints, except as documented, Denies dizziness, Reports facial pain, Denies headache(s), Denies nasal congestion, Denies nasal discharge, Denies neck pain, Reports sore throat and Reports throat swelling Cardiovascular: Cardiovascular: Reports no additional cardiovascular complaints, Denies chest pain, Denies leg edema and Denies dyspnea Respiratory: Respiratory: Reports no additional respiratory complaints, Denies cough and Denies dyspnea Gastrointestinal: Gastrointestinal: Reports no additional gastrointestinal complaints, Denies abdominal pain, Denies diarrhea, Denies nausea and Denies vomiting Genitourinary: Genitourinary: Denies urinary incontinence Musculoskeletal: Musculoskeletal: Reports no additional musculoskeletal complaints, Denies back pain, Denies arthralgias, Denies joint swelling, Denies neck pain, Denies numbness and Denies tingling Integumentary/Breasts: Skin/Breast: Reports system reviewed and no additional complaints, except as docu and Denies rash Neurologic: Reports system reviewed and no additional complaints, except as documented, Denies dizziness, Denies headache(s), Denies numbness, Denies tingling and Denies weakness Allergic/Immunologic: Allergic/Immunologic: Reports throat swelling PMFSH Past Medical History Attestation statement: The following information was validated with the patient. Source: old records reviewed and nursing notes reviewed Medical History Asthma Social History Social History Alcohol intake: never Smoked in Last 30 Days: No Use of substances other than those prescribed or required for medical reasons: No Advance Directives: No Advance Directives Information Provided: No Physical Exam ED Vital Signs: Vital Signs - 24 hr 09/10/22 10:32 09/10/22 17:43 Temperature 97.7 F 97.8 F Pulse Rate 81 76 Respiratory Rate 20 12 Blood Pressure 135/84 135/88 Pulse Oximetry 96 97 Oxygen Delivery Method Room Air Room Air BMI result Body Mass Index 28.0 Const General: cooperative, healthy appearing, comfortable and no acute distress Orientation/consciousness: patient oriented x3 Limitations: no limitations HENMT Other: No trismus Head: Yes normal to inspection Head images: 1. +swelling Ears: hearing grossly normal bilaterally and TM's normal bilaterally Mouth: Normal oral and palatal mucosa present, lip normal and tongue normal Throat: Yes uvula midline and Yes abnormal tonsil Throat image: 1. +swelling, moderate Eyes General: appearance normal, both eyes and all related structures Pupils: Equal, round and reactive pupils present Neck Neck: Yes normal visual inspection, Yes full ROM and Yes no meningeal signs Chest Chest palpation & inspection: normal inspection of the chest Resp Effort & Inspection: normal respiratory effort Auscultation: clear to auscultation bilaterally Cardio Rate: regular rate Rhythm: regular rhythm Peripheral pulses: Peripheral pulses 2+ throughout GI Inspection: Yes normal to inspection Palpation (GI): Soft to palpation and nontender General: Yes no CVA tenderness Back/Spine/Pelvis Back: no CVA tenderness Thoracic/Lumbar Spine: thoracic and lumbar spine normal to inspection Skin General skin exam: no rashes or lesions noted Neuro General: patient oriented x3, moves all extremities and no meningeal signs Cranial nerves: Yes Equal, round and reactive pupils present Course Course Course Narrative: 1914- Ct shows IMPRESSION: Abnormal heterogeneous soft tissue in the left parapharyngeal space tracking inferiorly to the level of the epiglottis and involving the deep lobe of the left parotid gland. Asymmetric increased soft tissue in the left oropharyngeal wall. Differential would include a left peritonsillar abscess or phlegmon in that blew out laterally into the parapharyngeal space versus primary parotid mass with medial extension. Prominent left cervical lymph nodes. - Patient would benefit from ENT evaluation and further management. We do not have ENT available here at [facility]. We did call and speak to [facility] but they are close to transfers. We reached out to [facility] and they will accept transfer of the patient for further management. Pending call back with accepting physician. Medications Administered Discontinued Medications Generic Name Dose Route Start Last Admin Trade Name Freq PRN Reason Stop Dose Admin Dexamethasone Sodium Phosphate 10 mg 09/10/22 14:09 09/10/22 14:55 Dexamethasone Sod Phosphate 10 Mg/Ml Vial IVPUSH 09/10/22 14:10 10 mg ONCE ONE Administration Sodium Chloride 1,000 mls @ 999 mls/hr 09/10/22 14:15 09/10/22 17:04 Ns IV 09/10/22 15:15 Infused .Q1H1M ABBEY Infusion Clindamycin Phosphate 600 mg in 50 mls @ 100 mls/hr 09/10/22 14:09 09/10/22 17:03 Cleocin IV 09/10/22 14:38 Infused ONCE ONE Infusion Iohexol 100 ml 09/10/22 15:56 09/10/22 15:57 Iohexol 350 Mg/Ml 100 Ml Infus..Btl IV 09/10/22 15:57 60 ml ONCE ONE Administration Ketorolac Tromethamine 30 mg 09/10/22 14:09 09/10/22 14:54 Ketorolac Tromethamine 30 Mg/Ml Vial IVPUSH 09/10/22 14:10 30 mg ONCE ONE Administration Medical Decision Making Medical Decision Making MDM Narrative: 32-year-old male with history of asthma, former IVDA here with complaints of left sided facial/throat swelling x 3 days. On exam +mod swelling over face and left tonsil. Uvula midline. Tolerating secretions. No trismus or stridor. Will need labs including blood cultures, lactic acid, CT soft tissue neck, covid/strep/mono screen. Will give clindamycin, toradol, decadron IV Differential Diagnosis Differential Diagnoses: The differential diagnosis associated with the presentation includes parotitis, CURATORIAL ASSISTANT less likely epiglotitis, ludwigs angina, malignancy, carotid dissection Admission/Observation Consideration of admission/observation: Escalation of care including admission/observation considered see discussion in course Lab Data [facility] Lab Attestation statement: I reviewed the patient's lab results. 09/10/22 14:47 09/10/22 14:47 Labs: Lab Results 09/10/22 09/10/22 09/10/22 Range/Units 14:47 14:47 14:47 WBC 5.6 (4.8-10.8) X10*3/uL RBC 4.99 (4.60-5.80) X10*6/uL Hgb 14.3 (14.0-18.0) g/dl Hct 42.6 (42.0-52.0) % MCV 85.4 (80.0-98.0) fL MCH 28.7 (27.0-33.0) pg MCHC 33.6 (31.0-36.0) g/dl RDW 12.3 (11.0-16.0) % Plt Count 198 (160-400) X10*3/uL MPV 10.2 (9.4-12.4) fL Immature Gran % (Auto) 0.2 (0.0-0.4) % Neut % (Auto) 56.8 (45-73) % Lymph % (Auto) 23.8 (20-40) % Hudspeth % (Auto) 7.5 (2-11) % Eos % (Auto) 11.2 H (0-4) % Baso % (Auto) 0.5 (0-2) % Lymph # (Auto) 1.3 (1.2-4.9) X10*3/uL [place]udspeth # (Auto) 0.4 (0.1-1.2) X10*3/uL Eos # (Auto) 0.6 H (0.0-0.4) X10*3/uL Baso # (Auto) 0.0 (0.0-0.2) X10*3/uL Abs Immat Gran (auto) 0.01 (0.00-0.03) X10*3/uL Absolute Neuts (auto) 3.2 (2.0-8.3) x10*3/uL Absolute Nucleated RBC 0.000 (0.0-0.012) X10*3/uL Nucleated RBC % (auto) 0.0 (0.0-0.2) /100WBC Sodium (135-145) mmol/L Potassium (3.3-5.1) mmol/L Chloride (96-108) mmol/L Carbon Dioxide (22-29) mmol/L Anion Gap (12-20) BUN (9-16) mg/dL Creatinine (0.5-1.4) mg/dL Estim Creat Clear Calc Estimated GFR Random Glucose (60-115) mg/dL Lactic Acid (0.5-2.0) mmol/L Calcium (8.4-10.2) mg/dL Total Bilirubin (0.0-1.0) mg/dL Direct Bilirubin (0.0-0.5) mg/dL AST (5-37) U/L ALT (0-40) U/L Alkaline Phosphatase (39-117) U/L Total Protein (6.5-8.0) g/dL Albumin (3.5-5.0) g/dL COVID-19 (RUBI) Negative (Negative) COVID-19 Clin Com See Note Monoscreen Negative (Negative) S. pyogenes GrpA PACO (Negative) 06/08/2809/10/22 09/10/22 Range/Units 14:47 14:47 14:48 WBC (4.8-10.8) X10*3/uL RBC (4.60-5.80) X10*6/uL Hgb (14.0-18.0) g/dl Hct (42.0-52.0) % MCV (80.0-98.0) fL MCH (27.0-33.0) pg MCHC (31.0-36.0) g/dl RDW (11.0-16.0) % Plt Count (160-400) X10*3/uL MPV (9.4-12.4) fL Immature Gran % (Auto) (0.0-0.4) % Neut % (Auto) (45-73) % Lymph % (Auto) (20-40) % Hudspeth % (Auto) (2-11) % Eos % (Auto) (0-4) % Baso % (Auto) (0-2) % Lymph # (Auto) (1.2-4.9) X10*3/uL Hudspeth # (Auto) (0.1-1.2) X10*3/uL Eos # (Auto) (0.0-0.4) X10*3/uL Baso # (Auto) (0.0-0.2) X10*3/uL Abs Immat Gran (auto) (0.00-0.03) X10*3/uL Absolute Neuts (auto) (2.0-8.3) x10*3/uL Absolute Nucleated RBC (0.0-0.012) X10*3/uL Nucleated RBC % (auto) (0.0-0.2) /100WBC Sodium 142 (135-145) mmol/L Potassium 3.9 (3.3-5.1) mmol/L Chloride 104 (96-108) mmol/L Carbon Dioxide 30 H (22-29) mmol/L Anion Gap 12 (12-20) BUN 15 (9-16) mg/dL Creatinine 0.84 (0.5-1.4) mg/dL Estim Creat Clear Calc 134.2 Estimated GFR > 60 Random Glucose 93 (60-115) mg/dL Lactic Acid 0.7 (0.5-2.0) mmol/L Calcium 9.5 (8.4-10.2) mg/dL Total Bilirubin 0.7 (0.0-1.0) mg/dL Direct Bilirubin 0.2 (0.0-0.5) mg/dL AST 23 (5-37) U/L ALT 14 (0-40) U/L Alkaline Phosphatase 76 (39-117) U/L Total Protein 7.7 (6.5-8.0) g/dL Albumin 4.5 (3.5-5.0) g/dL COVID-19 (RUBI) (Negative) COVID-19 Clin Com Monoscreen (Negative) S. pyogenes GrpA PACO Negative (Negative) Independent Interpretation I performed an independent interpretation of an: CT Scan Interpretation: I independently reviewed the CT scan of the soft tissue of the neck and agree with the radiologist report Radiology Impression Discussion of test interpretation with radiology: I have reviewed the radiologist's reading. Radiologist Impression: FINDINGS: There is ill-defined heterogeneous soft tissue seen in the left parapharyngeal space tracking laterally adjacent to the left pterygoid muscles, medial and lateral surfaces of the left mandible, posterior to the left masseter muscle and involves the deep lobe of the left parotid gland. There is asymmetric increased soft tissue in the left oropharyngeal wall. This is heterogeneous in attenuation with some high and low-attenuation components. Differential would include a left peritonsillar abscess or phlegmon in that blew out laterally into the left parapharyngeal space involving the deep lobe of the left parotid gland versus primary parotid mass with medial extension. High attenuation component could represent blood. Low-attenuation component extends inferiorly to the level of the epiglottis. There is effacement of the left side of the vallecula. The piriform sinuses and aryepiglottic folds are normal. The larynx is normal. The right parotid gland is normal. Visualized intracranial structures are normal. The orbits are normal. There is inflammatory change in the bilateral ethmoid sinuses. The temporomandibular joints and mastoid air cells are clear. There is poor dentition.? Normal thyroid gland. There are prominent left cervical lymph nodes. Largest lymph node is a left submandibular/anterior jugulodigastric lymph node. This measures 1 cm in short axis. The salivary glands are otherwise normal. The thyroid gland is normal. Vascular structures are normal. The superior mediastinum is normal. The lung apices are clear. Bony structures are unremarkable. CT/CT soft tissue neck w IV con IMPRESSION: Abnormal heterogeneous soft tissue in the left parapharyngeal space tracking inferiorly to the level of the epiglottis and involving the deep lobe of the left parotid gland. Asymmetric increased soft tissue in the left oropharyngeal wall. Differential would include a left peritonsillar abscess or phlegmon in that blew out laterally into the parapharyngeal space versus primary parotid mass with medial extension. Prominent left cervical lymph nodes. Discharge Plan Discharge Clinical Impression: Abscess, intratonsillar Patient Disposition: [facility] Transfer Details: [facility] Prescriptions: No Action prednisone 20 mg tablet 40 mg PO DAILY 5 Days Qty: 10 0RF benzonatate [Tessalon Perles] 100 mg capsule 100 mg PO TID PRN (Reason: cough) Qty: 18 0RF albuterol sulfate 90 mcg/actuation HFA aerosol inhaler 2 puff inhalation Q6H PRN (Reason: shortness of breath or wheezing) Qty: 8.5 0RF albuterol sulfate 2.5 mg /3 mL (0.083 %) solution for nebulization 2.5 mg inhalation QID PRN (Reason: asthma) Qty: 75 0RF prednisone 20 mg tablet 60 mg PO DAILY 5 Days Qty: 15 0RF albuterol sulfate 90 mcg/actuation HFA aerosol inhaler 2 puff inhalation Q4-6H PRN (Reason: shortness of breath or wheezing) Qty: 8.5 0RF prednisone 20 mg tablet 20 mg PO BID Qty: 10 0RF albuterol sulfate 90 mcg/actuation HFA aerosol inhaler 1 inh inhalation QID PRN (Reason: shortness of breath or wheezing) Qty: 8.5 0RF
[2022-09-10 14:53] LABS: MANUAL DIFF FLAG NO
[2022-09-10] MEDS: 0.9 % Sodium Chloride 1,000 ML 999 ML IV (14:53)
[2022-09-10] MEDS: Ketorolac Tromethamine 30 MG/ML VIAL IVPUSH (14:54)
[2022-09-10] MEDS: dexAMETHasone sod phosphate 10 MG/ML VIAL IVPUSH (14:55)
[2022-09-10 14:58] LABS: Basophils Percent Auto 0.5 % (0-2); Eosinophils Absolute Auto 0.6 X10*3/uL (0.0-0.4); Eosinophils Percent Auto 11.2 % (0-4); Hematocrit 42.6 % (42.0-52.0); Hemoglobin 14.3 g/dl (14.0-18.0); Imm Gran Abs Auto 0.01 X10*3/uL (0.00-0.03); Imm Gran Pct Auto 0.2 % (0.0-0.4); Lymphocytes Absolute Auto 1.3 X10*3/uL (1.2-4.9); Lymphocytes Percent Auto 23.8 % (20-40); Mean Corpuscular HGB Conc 33.6 g/dl (31.0-36.0); Mean Corpuscular Hemoglobin 28.7 pg (27.0-33.0); Mean Corpuscular Volume 85.4 fL (80.0-98.0); Mean Platelet Volume 10.2 fL (9.4-12.4); Monocytes Absolute Auto 0.4 X10*3/uL (0.1-1.2); Monocytes Percent Auto 7.5 % (2-11); Neutrophils Absolute Auto 3.2 x10*3/uL (2.0-8.3); Neutrophils Percent Auto 56.8 % (45-73); Platelet Count 198 X10*3/uL (160-400); Red Blood Count 4.99 X10*6/uL (4.60-5.80); Red Cell Distribution Width 12.3 % (11.0-16.0); White Blood Count 5.6 X10*3/uL (4.8-10.8)
[2022-09-10 15:10] LABS: IDNOW Serial# 6674DD1D; Strep A Nucleic Acid Negative (Negative)
[2022-09-10 15:15] LABS: COVID-19 Test Negative (Negative); IDNOW Serial# BCCEAD1C; Lactic Acid 0.7 mmol/L (0.5-2.0)
[2022-09-10 15:21] LABS: Alanine Aminotransferase 14 U/L (0-40); Albumin Level 4.5 g/dL (3.5-5.0); Alkaline Phosphatase 76 U/L (39-117); Anion Gap 12 (12-20); Aspartate Amino Transferase 23 U/L (5-37); Bilirubin Direct 0.2 mg/dL (0.0-0.5); Bilirubin Total 0.7 mg/dL (0.0-1.0); Blood Urea Nitrogen 15 mg/dL (9-16); Calcium 9.5 mg/dL (8.4-10.2); Carbon Dioxide 30 mmol/L (22-29); Chloride 104 mmol/L (96-108); Creatinine Clr Calc Pharmacy 134.2; Estimated Glomerular Filt Rate > 60; Glucose Random 93 mg/dL (60-115); Potassium 3.9 mmol/L (3.3-5.1); Sodium 142 mmol/L (135-145); Total Protein 7.7 g/dL (6.5-8.0)
[2022-09-10] MEDS: Clindamycin Phosphate/D5W 600 MG/50 ML PIGGYBACK 100 MG IV (15:24)
--- NOTE | 2022-09-10 15:25 | PC.NURSE ---
both sets of cultures draw, iv inserted, abx hanging via mar. no apparent distress, will ctm
[2022-09-10 15:30] LABS: Monotest Negative (Negative)
[2022-09-10] MEDS: iohexoL 350 MG/ML 100 ML INFUS..BTL IV (15:57)
[2022-09-10 17:43] VITALS: BP 135/88; PULSE 76; RESP 12; TEMP 36.6; O2SAT 97
--- NOTE | 2022-09-10 17:59 | PC.NURSE ---
pt sleeping, resting, no apparent distress, awaiting CT scan results
--- NOTE | 2022-09-10 20:13 | MHC.EDTECH ---
Patient was accepted to [facility] Emergency Dept.Accepting provider is
== END 2022-09-10 21:24 | disposition short-term general hospital (02) ==
PROVIDERS: Nurse Practitioner Family; Emergency Provider Emergency Medicine
DX: J36 Peritonsillar abscess (principal); Z20.822 Contact with and (suspected) exposure to COVID-19
CPT/HCPCS: 36415; 70491; 80048; 80076; 83605; 85025; 86308; 87040; 87635; 87651; 96361; 96374; 96375; 99285; J1100; J1885; Q9967

== ENCOUNTER 2023-02-20 18:02 | Outpatient (REF) | payer MEDICAID, SELFPAY ==
[2023-02-20 18:50] LABS: Influenza A PCR NEGATIVE (Negative); Influenza B PCR NEGATIVE (Negative); Resp Syncy Virus RNA Qual PCR NEGATIVE (Negative); SARS COV2 PCR INHOUSE NEGATIVE (Negative)
== END 2023-02-20 18:03 | disposition home or self-care (01) ==
LOC: HO.HHCLNP 18:02
PROVIDERS: Visit Provider Emergency Medicine
DX: Z11.52 Encounter for screening for COVID-19 (principal); J06.9 Acute upper respiratory infection, unspecified
CPT/HCPCS: 0241U

== ENCOUNTER 2023-03-11 10:25 | Outpatient (REF) | payer MEDICAID, SELFPAY ==
--- NOTE | ~2023-03-11 | XR_ITS ---
EXAMINATION: XR CHEST CLINICAL INFORMATION: Shortness of breath, exacerbation of asthma COMPARISON: Chest x-ray on 09/11/2022 TECHNIQUE: 2 views of the chest were obtained. FINDINGS: vascularity. LUNGS: Lungs are clear. No pneumothorax is seen. BONES: Bony skeleton is intact. XR/XR chest 2V IMPRESSION: Unchanged Normal chest x-ray.
== END 2023-03-11 10:26 | disposition home or self-care (01) ==
LOC: HO.HHCX 10:25
PROVIDERS: Visit Provider Nurse Practitioner
DX: J45.21 Mild intermittent asthma with (acute) exacerbation (principal)
CPT/HCPCS: 71046

== ENCOUNTER 2023-04-21 20:55 | Emergency (ER) | payer MEDICAID, SELFPAY ==
--- NOTE | 2023-04-21 | ECG_ITS ---
Test Reason : TACHYCARDIA Blood Pressure : / mmHG Vent. Rate : 105 BPM Atrial Rate : 105 BPM P-R Int : 140 ms QRS Dur : 096 ms QT Int : 350 ms P-R-T Axes : 070 055 064 degrees QTc Int : 462 ms Sinus tachycardia Otherwise normal ECG When compared with ECG of 07-OCT-2021 20:51, No significant change was found Referred By: Generic ED Physician Electronically Signed By:JOSH BRAUN
[2023-04-21 21:04] VITALS: BP 131/88; PULSE 118; RESP 16; TEMP 37.2; O2SAT 93; BMI 28.6
[2023-04-21 21:33] LABS: COVID-19 Test Negative (Negative); IDNOW Serial# 152EDE1D
[2023-04-21 21:35] LABS: IDNOW Serial# 9DB6401D; Influenza A Negative (Negative); Influenza A & B2 Note N; Influenza B2 Negative (Negative)
[2023-04-22 00:20] VITALS: BP 131/81; PULSE 106; RESP 18; O2SAT 96
--- NOTE | 2023-04-22 00:30 | ED_ITS ---
HPI - Asthma General Chief Complaint: Asthma Stated Complaint: asthma Time Seen by Provider: 04/21/23 23:44 Source: patient Mode of arrival: ambulatory Limitations: no limitations History of Present Illness HPI Narrative: Patient with history of asthma been seen very often take prednisone and whenever is off prednisone gets sick been on for last 2 weeks now complaining of increased shortness of breath and cough for last 1 week patient takes Flovent inhaler in the morning and nebulizing treatments/inhaler every 4-6 hours as needed no chest pain no fever no chills Related Data Previous Rx's Medication Instructions Recorded albuterol sulfate 2.5 mg/3 mL 2.5 mg (3 mL) inhalation QID PRN 10/31/20 (0.083 %) solution for nebulization asthma #75 mL albuterol sulfate 90 mcg/actuation 2 puff inhalation Q6H PRN 10/31/20 aerosol inhaler shortness of breath or wheezing #8.5 grams benzonatate 100 mg capsule 100 mg PO TID PRN cough #18 caps 10/31/20 (Paolo Cristobal) prednisone 20 mg tablet 40 mg (2 x 20 mg) PO DAILY 5 days 10/31/20 #10 tabs albuterol sulfate 90 mcg/actuation 2 puff inhalation Q4-6H PRN 11/15/20 aerosol inhaler shortness of breath or wheezing #8.5 grams prednisone 20 mg tablet 60 mg (3 x 20 mg) PO DAILY 5 days 11/15/20 #15 tabs albuterol sulfate 90 mcg/actuation 1 inh inhalation QID PRN shortness 10/07/21 aerosol inhaler of breath or wheezing #8.5 grams prednisone 20 mg tablet 20 mg PO BID #10 tabs 10/07/21 albuterol sulfate 2.5 mg/3 mL 2.5 mg (3 mL) inhalation Q4-6H PRN 04/22/23 (0.083 %) solution for nebulization shortness of breath or wheezing #90 mL albuterol sulfate 90 mcg/actuation 2 puff inhalation Q4-6H PRN 04/22/23 aerosol inhaler (ProAir HFA) shortness of breath or wheezing #8.5 grams prednisone 20 mg tablet 40 mg (2 x 20 mg) PO DAILY #10 tabs 04/22/23 Allergies Allergy/AdvReac Type Severity Reaction Status Date / Time No Known Allergies Allergy Verified 04/21/23 21:06 [No Known Allergies*] Review of Systems Review of Systems: Yes all other systems are reviewed and are negative PMFSH Past Medical History Onset Date is defined in the Problem List Problems that require an onset date and time if occurred within 24 hrs of arrival to the ED Aortic Dissection and Rupture; Neurologic impairment; Cardiopulmonary Arrest; Endotracheal Intubation; Insertion or Replacement of Mechanical Circulatory Assist Device Medical History Asthma Social History Social History Alcohol intake: never Advance Directives: No Advance Directives Information Provided: No Physical Exam Vital Signs: Vital Signs: Last Vital Signs Temp 98.9 F 04/21/23 21:04 Pulse 118 H 04/21/23 21:04 Resp 16 04/21/23 21:04 BP 131/88 04/21/23 21:04 Pulse Ox 93 04/21/23 21:04 O2 Del Method Room Air 04/21/23 21:04 BMI result Body Mass Index 28.6 Appearance: Alert. Oriented X3. No acute distress. ENT: Pharynx normal. Oral Mucosa moist Neck: Normal inspection. Neck supple. CVS: Normal heart rate and rhythm. Pulses normal. Respiratory: No respiratory distress. Equal air entry bilateral, bilateral occasional wheezing no crackles Abdomen: Soft and nontender. Skin: Skin warm and dry. Normal skin color. Normal skin turgor. Extremities: No lower extremity edema. No calf tenderness Neuro: Oriented X 3. Medical Decision Making Medical Decision Making [facility] Narrative: Patient with mild asthma steroid dependent COVID flu negative discharge patient home on prednisone inhaler advised to follow with pulmonology Lab Data [facility] Lab Attestation statement: I reviewed the patient's lab results. Labs: Lab Results 04/21/23 Range/Units 21:14 COVID-19 (RUBI) Negative (Negative) COVID-19 Clin Com See Note Influenza Type A (PACO) Negative (Negative) Influenza Type B (PACO) Negative (Negative) Influenza A & B Note N Discharge Plan Discharge Clinical Impression: Asthma with acute exacerbation Patient Disposition: Home, Self-Care Instructions: Asthma (ED) Additional Instructions: Continue inhaler/nebulizing treatment and follow up with your lung specialist Prednisone as prescribed Contin?e el tratamiento con inhalador/nebulizador y moy un seguimiento con andrews especialista en pulmones. Prednisona seg?n lo prescrito Prescriptions: New albuterol sulfate 2.5 mg /3 mL (0.083 %) solution for nebulization 2.5 mg inhalation Q4-6H PRN (Reason: shortness of breath or wheezing) Qty: 90 0RF prednisone 20 mg tablet 40 mg PO DAILY Qty: 10 0RF albuterol sulfate [ProAir HFA] 90 mcg/actuation HFA aerosol inhaler 2 puff inhalation Q4-6H PRN (Reason: shortness of breath or wheezing) Qty: 8.5 0RF No Action prednisone 20 mg tablet 40 mg PO DAILY 5 Days Qty: 10 0RF benzonatate [Tessalon Perles] 100 mg capsule 100 mg PO TID PRN (Reason: cough) Qty: 18 0RF albuterol sulfate 90 mcg/actuation HFA aerosol inhaler 2 puff inhalation Q6H PRN (Reason: shortness of breath or wheezing) Qty: 8.5 0RF albuterol sulfate 2.5 mg /3 mL (0.083 %) solution for nebulization 2.5 mg inhalation QID PRN (Reason: asthma) Qty: 75 0RF prednisone 20 mg tablet 60 mg PO DAILY 5 Days Qty: 15 0RF albuterol sulfate 90 mcg/actuation HFA aerosol inhaler 2 puff inhalation Q4-6H PRN (Reason: shortness of breath or wheezing) Qty: 8.5 0RF prednisone 20 mg tablet 20 mg PO BID Qty: 10 0RF albuterol sulfate 90 mcg/actuation HFA aerosol inhaler 1 inh inhalation QID PRN (Reason: shortness of breath or wheezing) Qty: 8.5 0RF Print Language: [place]
[2023-04-22] MEDS: Albuterol Sulfate 90 MCG 8 GM INHALER 4 PUFF INHALE (00:43)
[2023-04-22] MEDS: predniSONE 20 MG TABLET 40 MG PO (00:43)
== END 2023-04-22 00:45 | disposition home or self-care (01) ==
PROVIDERS: Emergency Provider Internal Medicine
DX: J45.901 Unspecified asthma with (acute) exacerbation (principal); R06.02 Shortness of breath; R00.0 Tachycardia, unspecified; Z11.52 Encounter for screening for COVID-19; Z79.899 Other long term (current) drug therapy
CPT/HCPCS: 87502; 87635; 93005; 99285

== ENCOUNTER → 2023-04-21 21:09 | Outpatient (BNV) | payer MEDICAID, SELFPAY | PROVIDERS: Emergency Provider Internal Medicine; Visit Provider Internal Medicine | DX: R00.0 Tachycardia, unspecified (principal) | CPT/HCPCS: 93010 ==

== ENCOUNTER 2023-08-07 10:14 | Inpatient (IN) | payer OTHER, SELFPAY ==
[2023-08-07] VITALS (10 sets, daily range): BP systolic 111–142; BP diastolic 78–88; PULSE 103–132; RESP 12–28; TEMP 36–36.7; O2SAT 85–94; BMI 29.4; BMI 29.3
--- NOTE | ~2023-08-07 | CT_ITS ---
EXAMINATION: CT ANGIOGRAM OF THE CHEST WITH AND WITHOUT CONTRAST (CT PULMONARY ANGIOGRAM FOR PE) CLINICAL INFORMATION: Reason for Exam sob + dimer COMPARISON: Previous chest CT October 2020 TECHNIQUE: Prior to contrast administration, noncontrast localization images were obtained. Subsequently, multidetector volumetric imaging was performed from the thoracic inlet to below the diaphragms following the administration of 65 mL Omnipaque 350 intravenous contrast. No contrast reaction reported Sagittal, coronal, and MIP oblique sagittal reformatted images were obtained on the CT workstation, uploaded to PACS, and reviewed. This CT examination was performed using dose optimization techniques as appropriate, variously including the following: *Automated exposure control *Adjustment of mA and/or kV according to patient size (this includes techniques or standardized protocols for targeted exams where dose is matched to indication/reason for exam; i.e. extremities or head) *Use of iterative reconstruction technique Total exam dose-length product 3-6 mGy-cm FINDINGS: QUALITY OF STUDY/CONTRAST BOLUS: Satisfactory. PULMONARY ARTERIES: No pulmonary emboli. THORACIC AORTA: No aneurysm. LUNG: Scattered areas of mild bronchial wall thickening and soft tissue opacification throughout the lungs. Findings are suggestive of bronchitis. 3 mm left lower lobe nodule axial image 278 series 7. This is stable from 2020 exam. PLEURA: No pleural effusion or pneumothorax. MEDIASTINUM: Normal heart size. No pericardial effusion. No hilar or mediastinal lymphadenopathy. No evidence of septal bowing or right heart strain. CORONARY ARTERY CALCIFICATION: None visualized on this study. CHEST WALL/AXILLA: No axillary or internal mammary lymphadenopathy. OSSEOUS STRUCTURES: No acute or suspicious osseous abnormality. UPPER ABDOMEN: Question small esophageal hernia. No reflux of contrast into the hepatic veins to suggest elevated right heart pressures. CT/CT angio chest PE protocol IMPRESSION: No evidence of pulmonary embolism. Scattered areas of mild bronchial wall thickening and soft tissue opacification suggestive of bronchitis. No evidence of pneumonia. 3 mm left lower lobe nodule stable from 2020 exam. No imaging follow-up recommended. VTE: negative
--- NOTE | ~2023-08-07 | XR_ITS ---
EXAMINATION: XR CHEST CLINICAL INFORMATION: Wheezing and shortness of breath COMPARISON: March 2023 TECHNIQUE: Frontal view of the chest was obtained. FINDINGS: No significant abnormality is noted involving the heart, lungs, mediastinum, bony thorax or soft tissues. XR/XR chest 1V IMPRESSION: Unremarkable examination, without interval change.
--- NOTE | 2023-08-07 11:30 | ED_ITS ---
HPI - SOB/Dyspnea General Chief Complaint: Dyspnea Stated Complaint: Difficulty breathing Time Seen by Provider: 08/07/23 10:46 Source: patient Mode of arrival: ambulatory Limitations: no limitations History of Present Illness HPI Narrative: This is a 33-year-old male history of asthma presenting to the emergency department for 2-3 days of difficulty breathing, wheezing, patient reports this feels like his typical asthma attack, he is also having an intermittent dry cough, he reports he is using his inhaler with little to no relief. He reports he was seen for this recently, prescribed prednisone however he could not pick it up because he did not have insurance at that time. States he now has insurance and he feels like he may need something stronger than just an inhaler. Patient denies fevers, chills, nausea, vomiting, abdominal pain, headache, vision changes, dizziness, weakness, chest pain, recent sick contacts Related Data Previous Rx's ?Medication ?Instructions ?Recorded albuterol sulfate 2.5 mg/3 mL 2.5 mg (3 mL) inhalation QID PRN 10/31/20 (0.083 %) solution for nebulization asthma #75 mL albuterol sulfate 90 mcg/actuation 2 puff inhalation Q6H PRN 10/31/20 aerosol inhaler shortness of breath or wheezing #8.5 grams benzonatate 100 mg capsule 100 mg PO TID PRN cough #18 caps 10/31/20 (Paolo Cristobal) prednisone 20 mg tablet 40 mg (2 x 20 mg) PO DAILY 5 days 10/31/20 #10 tabs albuterol sulfate 90 mcg/actuation 2 puff inhalation Q4-6H PRN 11/15/20 aerosol inhaler shortness of breath or wheezing #8.5 grams prednisone 20 mg tablet 60 mg (3 x 20 mg) PO DAILY 5 days 11/15/20 #15 tabs albuterol sulfate 90 mcg/actuation 1 inh inhalation QID PRN shortness 10/07/21 aerosol inhaler of breath or wheezing #8.5 grams prednisone 20 mg tablet 20 mg PO BID #10 tabs 10/07/21 albuterol sulfate 2.5 mg/3 mL 2.5 mg (3 mL) inhalation Q4-6H PRN 04/22/23 (0.083 %) solution for nebulization shortness of breath or wheezing #90 mL albuterol sulfate 90 mcg/actuation 2 puff inhalation Q4-6H PRN 04/22/23 aerosol inhaler (ProAir HFA) shortness of breath or wheezing #8.5 grams prednisone 20 mg tablet 40 mg (2 x 20 mg) PO DAILY #10 tabs 04/22/23 albuterol sulfate 90 mcg/actuation 2 inh inhalation Q4-6H PRN 08/07/23 breath activated powder inhaler shortness of breath or wheezing #1 ea prednisone 20 mg tablet 40 mg (2 x 20 mg) PO DAILY 5 days 08/07/23 #10 tabs Allergies Allergy/AdvReac Type Severity Reaction Status Date / Time No Known Allergies Allergy Verified 08/07/23 10:28 [No Known Allergies*] Review of Systems 2 Review of Systems: Yes all other systems are reviewed and are negative [facility] Past Medical History Attestation statement: The following information was validated with the patient. Source: old records reviewed and nursing notes reviewed Medical History Asthma Social History Social History Alcohol intake: never Advance Directives: No Advance Directives Information Provided: No Do you have a plan to hurt others: No Plan Physical Exam 2 Vital Signs: Vital Signs: Last Vital Signs Temp 97.8 F 08/07/23 13:32 Pulse 116 H 08/07/23 14:16 Resp 18 08/07/23 14:16 BP 141/88 H 08/07/23 13:32 Pulse Ox 93 08/07/23 13:32 O2 Del Method Nasal Cannula 08/07/23 13:32 O2 Flow Rate 3 08/07/23 13:32 BMI result Body Mass Index 29.4 tachycardia likely secondary to albuterol Appearance: Alert.? Oriented X3.? No acute distress.? Head: Normocephalic, atraumatic, no step-offs or deformities Eyes: Pupils equal, round and reactive to light.? Neck: Normal inspection.? Neck supple.? CVS: Normal heart rate and rhythm.? Pulses normal.? Respiratory: No respiratory distress.? Breath sounds diminished and with expiratory wheezing throughout .? Abdomen: Soft and nontender.? Skin: Skin warm and dry.? Normal skin color.? Normal skin turgor.? Extremities: No lower extremity edema.? No calf ttp. 5/5 strength to bilateral upper and lower extremities Neuro: Oriented X 3.? No motor deficit.? No sensory deficit. CN 2-12 intact Course Reevaluation(s) Reevaluation #1: CBC unremarkable. Chemistry no acute findings requiring intervention. Flu, COVID, RSV negative. Chest x-ray unremarkable. Patient did desat down to 85% on room air, patient on 3 L nasal cannula saturating 91-92%, which decreases with ambulation. CT angio no evidence of PE scattered areas of mild bronchial wall thickening and soft tissue opacification concerning for bronchitis. No evidence of pneumonia. 3 mm left lower lobe nodule. Ceftraixone ordered. Time: 16:59 Medications Administered Discontinued Medications Generic Name Dose Route Start Last Admin Trade Name Freq PRN Reason Stop Dose Admin Albuterol Sulfate 2.5 mg 08/07/23 14:10 08/07/23 14:16 Albuterol Sulfate (0.083%) 2.5 Mg/3 Ml Vial.Neb INHALE 08/07/23 14:11 2.5 mg ONCE ONE Administration Albuterol Sulfate 5 mg/ 0 mg 08/07/23 12:24 08/07/23 12:28 Albuterol/Ipratropium 3 ml INHALE 08/07/23 12:25 7.5 each ONCE ONE Administration Magnesium Sulfate 2 gm in 50 mls @ 25 mls/hr 08/07/23 11:24 08/07/23 12:50 Magnesium Sulfate/H2o IV 08/07/23 13:23 Infused ONCE ONE Infusion Iohexol 100 ml 08/07/23 14:04 08/07/23 14:04 Iohexol 350 Mg/Ml 100 Ml Infus..Btl IV 08/07/23 14:05 65 ml ONCE ONE Administration Methylprednisolone Sodium Succinate 125 mg 08/07/23 11:24 08/07/23 12:29 Methylprednisolone Sod Succ 125 Mg/2 Ml Vial IVPUSH 08/07/23 11:25 125 mg ONCE ONE Administration Medical Decision Making Medical Decision Making [facility] Narrative: 1132 33 year old male presents w/ cc of asthma attack X 2 days PE ? Breath sounds diminished and with expiratory wheezing throughout .? History and physical exam concerning for acute asthma exacerbation versus illness versus flu versus COVID versus RSV. Unlikely PE, pneumonia, ACS, pneumothorax, acute respiratory distress. Patient's tachycardia likely secondary to albuterol/inhalers at home. Unlikely secondary to pulmonary embolism. Plan viral testing, x-ray, will give magnesium, Solu-Medrol, bronch protocol Differential Diagnosis Differential Diagnoses: The differential diagnosis associated with the presentation includes History and physical exam concerning for acute asthma exacerbation versus illness versus flu versus COVID versus RSV. Unlikely PE, pneumonia, ACS, pneumothorax, acute respiratory distress. Patient's tachycardia likely secondary to albuterol/inhalers at home. Unlikely secondary to pulmonary embolism. Admission/Observation Consideration of admission/observation: Escalation of care including admission/observation considered Lab Data 08/07/23 12:20 08/07/23 12:20 Labs: Lab Results 08/07/23 08/07/23 Range/Units 11:14 12:20 WBC 9.8 (4.8-10.8) X10*3/uL RBC 5.33 (4.60-5.80) X10*6/uL Hgb 15.2 (14.0-18.0) g/dl Hct 45.6 (42.0-52.0) % MCV 85.6 (80.0-98.0) fL MCH 28.5 (27.0-33.0) pg MCHC 33.3 (31.0-36.0) g/dl RDW 12.4 (11.0-16.0) % Plt Count 195 (160-400) X10*3/uL MPV 10.4 (9.4-12.4) fL Immature Gran % (Auto) 0.4 (0.0-0.4) % Neut % (Auto) 83.7 H (45-73) % Lymph % (Auto) 6.0 L (20-40) % [place] % (Auto) 6.0 (2-11) % Eos % (Auto) 3.6 (0-4) % Baso % (Auto) 0.3 (0-2) % Lymph # (Auto) 0.6 L (1.2-4.9) X10*3/uL [place] # (Auto) 0.6 (0.1-1.2) X10*3/uL Eos # (Auto) 0.4 (0.0-0.4) X10*3/uL Baso # (Auto) 0.0 (0.0-0.2) X10*3/uL Abs Immat Gran (auto) 0.04 H (0.00-0.03) X10*3/uL Absolute Neuts (auto) 8.2 (2.0-8.3) x10*3/uL Absolute Nucleated RBC 0.000 (0.0-0.012) X10*3/uL Nucleated RBC % (auto) 0.0 (0.0-0.2) /100WBC D-Dimer High Sensitivty 290 NG/ML Sodium 138 (135-145) mmol/L Potassium 4.2 (3.3-5.1) mmol/L Chloride 101 (96-108) mmol/L Carbon Dioxide 27 (22-29) mmol/L Anion Gap 14 (12-20) BUN 13 (9-16) mg/dL Creatinine 0.88 (0.5-1.4) mg/dL Estim Creat Clear Calc 129.7 Estimated GFR > 60 Random Glucose 100 (60-115) mg/dL Calcium 9.8 (8.4-10.2) mg/dL Total Bilirubin 0.8 (0.0-1.0) mg/dL AST 19 (5-37) U/L ALT 14 (0-40) U/L Alkaline Phosphatase 65 (39-117) U/L Total Protein 8.0 (6.5-8.0) g/dL Albumin 4.5 (3.5-5.0) g/dL Influenza Type A (PCR) NEGATIVE (Negative) Influenza Type B (PCR) NEGATIVE (Negative) RSV RNA Qual (PCR) NEGATIVE (Negative) SARS-CoV-2 RNA (RT-PCR) NEGATIVE (Negative) Critical Care Time Critical Care Time Critical Care Time: Yes Total Critical Care Time: 35 Attestation: I attest to this time spent taking care of the patient, obtaining history, physical, reviewing labs, imaging, speaking to my attending, specialist or hospitalist. Discharge Plan Discharge Clinical Impression: Asthma with exacerbation, Hypoxia Patient Disposition: Admitted As Inpatient Additional Instructions: Take your medications as prescribed. If you were prescribed antibiotics today, it is important that you take your medication to their entirety, do not skip any doses, do not finish them early. Follow-up with your primary care provider this week. Return to the emergency department with new or worsening symptoms. Such as fevers, chills, chest pain, shortness of breath, nausea, vomiting, dizziness, headache, vision changes, lethargy In case of emergency call 911 Print Language: Latvian
[2023-08-07 12:24] LABS: MANUAL DIFF FLAG NO
[2023-08-07 12:26] LABS: Basophils Percent Auto 0.3 % (0-2); Eosinophils Absolute Auto 0.4 X10*3/uL (0.0-0.4); Eosinophils Percent Auto 3.6 % (0-4); Hematocrit 45.6 % (42.0-52.0); Hemoglobin 15.2 g/dl (14.0-18.0); Imm Gran Abs Auto 0.04 X10*3/uL (0.00-0.03); Imm Gran Pct Auto 0.4 % (0.0-0.4); Lymphocytes Absolute Auto 0.6 X10*3/uL (1.2-4.9); Mean Corpuscular HGB Conc 33.3 g/dl (31.0-36.0); Mean Corpuscular Hemoglobin 28.5 pg (27.0-33.0); Mean Corpuscular Volume 85.6 fL (80.0-98.0); Mean Platelet Volume 10.4 fL (9.4-12.4); Monocytes Absolute Auto 0.6 X10*3/uL (0.1-1.2); Neutrophils Absolute Auto 8.2 x10*3/uL (2.0-8.3); Neutrophils Percent Auto 83.7 % (45-73); Platelet Count 195 X10*3/uL (160-400); Red Blood Count 5.33 X10*6/uL (4.60-5.80); Red Cell Distribution Width 12.4 % (11.0-16.0); White Blood Count 9.8 X10*3/uL (4.8-10.8)
[2023-08-07] MEDS: Albuterol Sulfate 5 MG, Albuterol/Iprat 2.5/0.5MG 3 ML 3 ML INHALE (12:28)
[2023-08-07] MEDS: Magnesium Sulfate/H2O 2 GM/50 ML PIGGYBACK IV (12:29)
[2023-08-07] MEDS: methylPREDNISolone Sod Succ 125 MG/2 ML VIAL IVPUSH (12:29)
[2023-08-07 12:44] LABS: D Dimer High Sensitivity 290 NG/ML
[2023-08-07 13:42] LABS: Alanine Aminotransferase 14 U/L (0-40); Albumin Level 4.5 g/dL (3.5-5.0); Alkaline Phosphatase 65 U/L (39-117); Anion Gap 14 (12-20); Aspartate Amino Transferase 19 U/L (5-37); Bilirubin Total 0.8 mg/dL (0.0-1.0); Blood Urea Nitrogen 13 mg/dL (9-16); Calcium 9.8 mg/dL (8.4-10.2); Carbon Dioxide 27 mmol/L (22-29); Chloride 101 mmol/L (96-108); Creatinine Clr Calc Pharmacy 129.7; Estimated Glomerular Filt Rate > 60; Glucose Random 100 mg/dL (60-115); Potassium 4.2 mmol/L (3.3-5.1); Sodium 138 mmol/L (135-145)
[2023-08-07] MEDS: iohexoL 350 MG/ML 100 ML INFUS..BTL IV (14:04)
[2023-08-07] MEDS: Albuterol Sulfate (0.083%) 2.5 MG/3 ML VIAL.NEB INHALE (14:16)
--- NOTE | 2023-08-07 16:42 | PM.IMHP ---
History of Present Illness Date of Service: 08/07/23 Attending physician on admission: Elina Castellon Chief Complaint: SOB, wheezing Pt is a 33-year-old Croatian-speaking male with a PMH significant for?moderate persistent asthma and opioid use disorder on methadone who presents to the ED for evaluation of shortness of breath and difficulty breathing x3 days. Patient reports has been experiencing increased shortness of breath, RAYGOZA, and wheezing not sufficiently alleviated by home inhalers. Also reports productive cough of whitish-clear phlegm. ?Denies chest pain/pressure, palpitations. No fever, chills, nausea, vomiting, abdominal pain. Of note, patient reports recently starting methadone. States he is ?in the process of cleaning up?, last snorted heroin 2 days prior on Saturday08/05/2023. In the ED pt was tachycardic up to 132, tachypneic up to 28, slightly hypertensive to 141/88, and hypoxic as low as 85% RA. Labs were significant for mildly elevated D-dimer of 290, otherwise grossly unremarkable. No leukocytosis. Stable H& H. No electrolyte abnormalities. Renal and hepatic function baseline. Tested negative for influenza, RSV, and COVID. CXR was unremarkable, without interval change. CTA of chest found no evidence of pulmonary embolism or pneumonia, but showed mild bronchial wall thickening and soft tissue opacification suggestive of bronchitis. Pt was treated with DuoNebs, Mag sulfate, Solu-Medrol, and albuterol. Pt will be admitted to the hospital for treatment and further evaluation of acute hypoxic respiratory failure in the setting of acute asthma exacerbation with bronchitis. Review of Systems Review of Systems: SOB, RAYGOZA Wheezing Productive Denies chest pain/pressure, palpitations No fever, chills, nausea, vomiting, abdominal pain [facility] Medical History Opioid use disorder Moderate persistent asthma Asthma Social History Household Members: Children and Other Household Members Other:: girlfriend Housing: Apartment Do you presently have visiting nurse or other home services: No Alcohol intake: never Patient Tobacco Use Status: Never used Tobacco Smoked in Last 30 Days: No Use of substances other than those prescribed or required for medical reasons: Yes Substance Use Type: Heroin Last Used Substance: Days (ago) Currently Displaying Signs/Symptoms of Drug Intoxication Withdrawal: No Have you been hit, kicked, punched, or otherwise hurt by someone within the past year? If so, by whom?: No Do you feel safe in your current relationship?: Yes Is there a partner from a previous relationship who is making you feel unsafe now?: No Are you made to feel afraid or neglected: No Advance Directives: No Advance Directives Information Provided: No Do you have a plan to hurt others: No Plan Recently lost weight without trying: No Eating poorly because of decreased appetite: No Nutrition Risks: No Nutritional Risk service: No Meds Allergies Allergy/AdvReac Type Severity Reaction Status Date / Time No Known Allergies Allergy Verified 08/07/23 10:28 [No Known Allergies*] Home Medications ?Medication ?Instructions ?Recorded ?Confirmed ?Last Taken ?Type methadone 10 mg/mL oral 85 mg PO DAILY 08/08/23 08/08/23 08/07/23 09:06 History concentrate (Methadone Intensol) Physical Exam Vital Signs and Narrative: Vital Signs: Last Vital Signs Temp 97.8 F 08/07/23 13:32 Pulse 116 H 08/07/23 14:16 Resp 18 08/07/23 14:16 BP 141/88 H 08/07/23 13:32 Pulse Ox 93 08/07/23 13:32 O2 Del Method Nasal Cannula 08/07/23 13:32 O2 Flow Rate 3 08/07/23 13:32 BMI result Body Mass Index 29.4 Constitutional: Alert, in no acute distress. Mental Status: Oriented to person, place and time. Eyes: Pupils are equal, round, and reactive to light. Ear, Nose, and Throat: Oropharynx clear, mucous membranes moist. Ears and nose without deformities. Trachea midline. Respiratory: Diffuse expiratory wheezing bilaterally. Cardiovascular: S1, S2 regular. No murmurs, rubs, or gallops. Gastrointestinal: Abdomen soft, non-tender, non-distended. Normal bowel sounds. Neurologic: Cranial nerves II-XII are grossly intact bilaterally. No focal neurological deficits. Moves all extremities spontaneously. Skin: Warm, dry. Musculoskeletal: No cyanosis or clubbing. Extremities: No edema. Psychiatric: Normal mood and affect. Results Labs 08/07/23 12:20 08/07/23 12:20 Labs: Laboratory Results - last 24 hr 08/07/23 08/07/23 11:14 12:20 MCV 85.6 MCH 28.5 MCHC 33.3 RDW 12.4 Plt Count 195 MPV 10.4 Immature Gran % (Auto) 0.4 Neut % (Auto) 83.7 H Lymph % (Auto) 6.0 L [place] % (Auto) 6.0 Eos % (Auto) 3.6 Baso % (Auto) 0.3 Lymph # (Auto) 0.6 L [place] # (Auto) 0.6 Eos # (Auto) 0.4 Baso # (Auto) 0.0 Abs Immat Gran (auto) 0.04 H Absolute Neuts (auto) 8.2 Absolute Nucleated RBC 0.000 Nucleated RBC % (auto) 0.0 D-Dimer High Sensitivty 290 Anion Gap 14 Estim Creat Clear Calc 129.7 Estimated GFR > 60 Random Glucose 100 Calcium 9.8 Total Bilirubin 0.8 AST 19 ALT 14 Alkaline Phosphatase 65 Total Protein 8.0 Albumin 4.5 Influenza Type A (PCR) NEGATIVE Influenza Type B (PCR) NEGATIVE RSV RNA Qual (PCR) NEGATIVE SARS-CoV-2 RNA (RT-PCR) NEGATIVE Imaging Radiologist's Impressions: Impressions Chest X-Ray 08/07/23 11:05 IMPRESSION: Unremarkable examination, without interval change. Chest CTA 08/07/23 14:30 IMPRESSION: No evidence of pulmonary embolism. Scattered areas of mild bronchial wall thickening and soft tissue opacification suggestive of bronchitis. No evidence of pneumonia. 3 mm left lower lobe nodule stable from 2020 exam. No imaging follow-up recommended. VTE: negative Assessment and Plan (1) Hypoxia: Status: Acute (2) Asthma with exacerbation: Status: Acute (3) Bronchitis: Status: Acute Plan Pt is a 33-year-old Croatian-speaking male with a PMH significant for?moderate persistent asthma and opioid use disorder on methadone who presents to the ED for evaluation of shortness of breath and difficulty breathing x3 days. Pt will be admitted to the hospital for treatment and further evaluation of acute hypoxic respiratory failure in the setting of acute asthma exacerbation with bronchitis. Acute hypoxic respiratory failure in the setting of asthma exacerbation with bronchitis Patient desatting as low as 85% on RA; CTA showing evidence of bronchitis Patient continues to be SOB, RAYGOZA, wheezing despite multiple treatments in the ED Will treat with Xopenex, Spiriva, Solu-Medrol, benzonatate Patient does not meet sepsis criteria: Tachycardia secondary to albuterol use; no leukocytosis or fever Will empirically cover with ceftriaxone, started 08/07/2023 Titrate supplemental O2 >92, wean as tolerated Follow cultures Opioid use disorder Reports being on methadone, but not verified Last snorted heroin on Saturday Addiction medicine consult Full Code Attending:? DVT Prophylaxis: Lovenox Pt will require a hospitalization of at least two nights for treatment of?acute hypoxic respiratory failure in the setting of acute asthma exacerbation secondary to bronchitis. Patient will require hospitalization for the administration of supplemental oxygen, IV steroids, breathing treatments, and IV antibiotics. Quality Stroke Does the patient have a stroke diagnosis?: No VTE Prior VTE?: No VTE Risk Level:: Medical - moderate - high VTE Device Contraindication: Treatment Not Indicated VTE Drug Contraindication: N/A - Med Ordered
--- NOTE | 2023-08-07 17:37 | PHA.MEDREC ---
Pharmacy Consult ? Medication Reconciliation Pharmacy has completed the medication reconciliation. patient reports he has a nebulizer at home and no other medicaitons. Kathe Briggs, Juno[employer]
--- NOTE | 2023-08-07 18:49 | MHC.EDTECH ---
At 1840 Dinner tray given to patient.
[2023-08-07] MEDS: cefTRIAXone sodium 1 GM in 0.9 % Sodium Chloride 50 ML IV (18:53)
[2023-08-07] MEDS: Enoxaparin Sodium 40 MG/0.4 ML SYRINGE SUBCUT (18:53)
[2023-08-07 19:00] LABS: Lactic Acid 2.6 mmol/L (0.5-2.0)
--- NOTE | 2023-08-07 19:02 | PC.NURSE ---
late entry-delay in antibiotic administration due to new orders for blood cultures per tay madrid delay in obtaining blood cultures due to pt admission status pt medicated according to mara madrid pt okay to stay on o2 and be weaned as needed
[2023-08-07 19:03] LABS: TSH reflex Free T4 0.59 uIU/mL (0.32-4.0)
[2023-08-07] MEDS: 0.9 % Sodium Chloride 1,000 ML 999 ML IV (19:51)
[2023-08-07] MEDS: levalbuterol HCL 1.25 MG/3 ML VIAL.NEB INHALE (20:32)
[2023-08-07 20:35] LABS: Reflex Lactate? Lactic Acid Added
[2023-08-07 21:31] LABS: ~Lactic Acid-LAB USE ONLY 1.9 mmol/L (0.5-2.0)
[2023-08-07] MEDS: Benzonatate 100 MG CAPSULE PO (21:45)
[2023-08-07] MEDS: methylPREDNISolone Sod Succ 40 MG/ML VIAL IVPUSH (21:45)
[2023-08-08] VITALS (12 sets, daily range): BP systolic 109–133; BP diastolic 61–74; PULSE 71–107; RESP 16–20; TEMP 36.1–36.4; O2SAT 92–96
[2023-08-08] MEDS: levalbuterol HCL 1.25 MG/3 ML VIAL.NEB INHALE ×6 (00:23→23:57)
[2023-08-08] MEDS: Tiotropium Bromide 2.5 mcg 1 PUFF/2.5 MCG MIST.INHAL 2 PUFF INHALE (07:23)
--- NOTE | 2023-08-08 09:05 | MHC.CM.PN ---
CM met with Patient at bedside with the assist of a [facility] Building Supervisor. 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 Home/self care is the goal (Car is here) and CM has initiated and will follow for dc planning.Now that Patient has insurance, he indicates that he is looking for a PCP.
[2023-08-08] MEDS: methylPREDNISolone Sod Succ 40 MG/ML VIAL IVPUSH ×2 (09:31→21:30)
--- NOTE | 2023-08-08 10:58 | HE.PHANOTE ---
RE: METHADONE DOSE Last dose of methadone 85 mg was given on 08/07/23@0906 at [facility] per Murphy Muir.
[2023-08-08] MEDS: methADONE HCl 20 MG/2 ML ORAL.CONC 85 MG PO (12:17)
[2023-08-08 14:39] LABS: Adenovirus PCR Not Detected (Not Detect.); Bordetella parapertussis PCR Not Detected (Not Detect.); Bordetella pertussis PCR Not Detected (Not Detect.); Chlamydia pneumoniae PCR Not Detected (Not Detect.); Coronavirus 229E PCR Not Detected (Not Detect.); Coronavirus HKU1 PCR Not Detected (Not Detect.); Coronavirus NL63 PCR Not Detected (Not Detect.); Coronavirus OC43 PCR Not Detected (Not Detect.); Human metapneumovirus PCR Not Detected (Not Detect.); Influenza A PCR Not Detected (Not Detect.); Influenza B PCR Not Detected (Not Detect.); Mycoplasma pneumoniae PCR Not Detected (Not Detect.); Parainfluenza 1 PCR Not Detected (Not Detect.); Parainfluenza 2 PCR Not Detected (Not Detect.); Parainfluenza 3 PCR Not Detected (Not Detect.); Parainfluenza 4 PCR Not Detected (Not Detect.); RSV PCR Not Detected (Not Detect.); Rhino/Enterovirus PCR Detected (Not Detect.)
--- NOTE | 2023-08-08 14:39 | HO.PM.IMPN ---
Subjective Subjective Date of Service: 08/08/23 Interval History: Acute hypoxic respiratory failure in the setting of asthma exacerbation with bronchitis Review of Systems sob seems somewhat improving has cough Physical Exam Vital Signs: Vital Signs: Last Vital Signs Temp 97.0 F 08/08/23 11:16 Pulse 100 08/08/23 11:17 Resp 18 08/08/23 11:17 BP 109/61 08/08/23 11:16 Pulse Ox 95 08/08/23 11:16 O2 Del Method Nasal Cannula 08/08/23 11:16 O2 Flow Rate 1 08/08/23 11:16 BMI result Body Mass Index 29.3 Appearance: Alert.? Oriented X3.? cvs: rrr, [id number] , no murmur res: air entry dimished ,exp wheezing abd: no rebound or guarding ,nt, bs present. ext pulses present , no cyanosis . neuro: axo3 , nonfocal. Objective Data Active Medications Acetaminophen (Acetaminophen 325 Mg Tablet) 650 mg PO Q6H PRN PRN Reason: Pain, Mild (Pain Scale 1-3) Benzonatate (Benzonatate 100 Mg Capsule) 100 mg PO TID PRN PRN Reason: Cough Last Admin: 08/07/23 21:45 Dose: 100 mg Documented By: KATLYN Docusate Sodium (Docusate Sodium 100 Mg Capsule) 100 mg PO DAILY PRN PRN Reason: Constipation Enoxaparin Sodium (Enoxaparin Sodium 40 Mg/0.4 Ml Syringe) 40 mg SUBCUT Q24H [facility], [facility] Last Admin: 08/07/23 18:53 Dose: 40 mg Documented By: REECE Ceftriaxone Sodium 1 gm/ (Sodium Chloride) 50 mls @ 100 mls/hr IV Q24H [facility], [facility]1983 Levalbuterol HCl (Levalbuterol Hcl 1.25 Mg/3 Ml Vial.Neb) 1.25 mg INHALE RQ4H [facility], [facility] Last Admin: 08/08/23 11:16 Dose: 1.25 mg Documented By: VILMA Melatonin (Melatonin 3 Mg Tablet) 6 mg PO BEDTIME PRN PRN Reason: Insomnia Methadone HCl (Methadone Hcl 20 Mg/2 Ml Oral.Conc) 85 mg PO DAILY [facility] Last Admin: 08/08/23 12:17 Dose: 85 mg Documented By: NOBLE Methylprednisolone Sodium Succinate (Methylprednisolone Sod Succ 40 Mg/Ml Vial) 40 mg IVPUSH Q12H [facility], [facility] Last Admin: 08/08/23 09:31 Dose: 40 mg Documented By: NOBLE Ondansetron HCl (Ondansetron Hcl 4 Mg/2 Ml Vial) 4 mg IVPUSH Q8H PRN PRN Reason: Nausea and Vomiting Tiotropium [place] (Tiotropium [place] 2.5 Mcg 1 Puff/2.5 Mcg Mist.Inhal) 2 puff INHALE RDAILY [facility] Last Admin: 08/08/23 07:23 Dose: 2 puff Documented By: VILMA Labs 08/07/23 12:20 08/07/23 12:20 Labs: Laboratory Results - last 24 hr 08/07/23 08/07/23 08/07/23 12:20 18:30 19:44 Lactic Acid 2.6 H* Lactic Acid F/U @ 2Hr TSH 0.59 Respiratory Panel [place] Cancelled Adenovirus (Rapid PCR) Cancelled B.pert (TEM-PCR) Cancelled B.parapertussis DNA PCR Cancelled C. pneumoniae DNA (PCR) Cancelled Coronavirus OC43 (PCR) Cancelled Coronavirus HKU1 (PCR) Cancelled Coronavirus 229E (PCR) Cancelled Coronavirus NL63 (PCR) Cancelled Human Metapneumovir PCR Cancelled Influenza A (RT-PCR) Cancelled Influenza B (RT-PCR) Cancelled M. pneumoniae (PCR) Cancelled Parainfluenza 1 (PCR) Cancelled Parainfluenza 2 (PCR) Cancelled Parainfluenza 3 (PCR) Cancelled Parainfluenza 4 (PCR) Cancelled RSV (PCR) Cancelled Entero/Rhino (PCR) Cancelled SARS-CoV-2 RNA (RT-PCR) Cancelled 08/07/23 21:04 Lactic Acid Lactic Acid F/U @ 2Hr 1.9 TSH Respiratory Panel [place] Adenovirus (Rapid PCR) B.pert (TEM-PCR) B.parapertussis DNA PCR C. pneumoniae DNA (PCR) Coronavirus OC43 (PCR) Coronavirus HKU1 (PCR) Coronavirus 229E (PCR) Coronavirus NL63 (PCR) Human Metapneumovir PCR Influenza A (RT-PCR) Influenza B (RT-PCR) M. pneumoniae (PCR) Parainfluenza 1 (PCR) Parainfluenza 2 (PCR) Parainfluenza 3 (PCR) Parainfluenza 4 (PCR) RSV (PCR) Entero/Rhino (PCR) SARS-CoV-2 RNA (RT-PCR) Assessment and Plan (1) Bronchitis: Status: Acute (2) Hypoxia: Status: Acute (3) Asthma with exacerbation: Status: Acute Plan 33-year-old Honduran-speaking male with a PMH significant for?moderate persistent asthma and opioid use disorder on methadone who presents to the ED for evaluation of shortness of breath and difficulty breathing x3 days. Pt will be admitted to the hospital for treatment and further evaluation of acute hypoxic respiratory failure in the setting of acute asthma exacerbation with bronchitis. Acute hypoxic respiratory failure in the setting of asthma exacerbation(moderate persistent asthma) with acute bronchitis,has viral uri(rhino/entero) Patient desatting as low as 85% on RA; CTA showing evidence of bronchitis has SOB, RAYGOZA, wheezing despite multiple treatments in the ED Xopenex, Spiriva, Solu-Medrol, benzonatate,Will empirically cover with ceftriaxone, started 08/07/2023,tpaer oxygen Titrate supplemental O2 >92, wean as tolerated Follow cultures Opioid use disorder Reports being on methadone, but not verified Last snorted heroin on Saturday Addiction medicine consult Full Code DVT Prophylaxis: Lovenox ongoing hospitalization need:for treatment of?acute hypoxic respiratory failure in the setting of acute asthma exacerbation secondary to bronchitis. Patient will require hospitalization for the administration of supplemental oxygen, IV steroids, breathing treatments, and IV antibiotics. Quality Stroke Does the patient have a stroke diagnosis?: No VTE Prior VTE?: No VTE Risk Level:: Medical - moderate - high VTE Device Contraindication: Treatment Not Indicated VTE Drug Contraindication: N/A - Med Ordered
[2023-08-08 15:02] LABS: SARS-CoV-2 PCR Not Detected (Not Detect.)
--- NOTE | 2023-08-08 15:57 | HO.ADDICTCON ---
History of Present Illness Date of Service: 08/08/2023 Chief Complaint: hypoxia, asthma exacerbation Reason for Consult: OUD Sources of Information: patient interviewed and chart reviewed HPI Narrative: Patient is a Barbadian speaking male medically admitted with asthma exacerbation Consult requested as patient reported ongoing opiate use Seen in room 459 with med specialist Awake, alert, pleasant and engaged in interview He reports he is engaged in treatment via [facility] and his current methadone dose is 85mg Last dose yesterday He reports that he has been cutting down [place] opiate use. Discussed how ongoing use is likely contributing to asthma exacerbation. He reports he is working more and finds that when he works he has less thoughts of using He also states that within the last month he has increased his visits with his counselor and finds it helpful He has no questions or concerns at this time Review of Systems Constitutional: Reports as per HPI Diagnostics Vital Signs (24Hr): Vital Signs - 24 hr 08/07/23 17:46 08/07/23 19:41 08/07/23 20:32 Temperature 98.0 F Pulse Rate 104 H 109 H Respiratory Rate 12 16 Blood Pressure 111/78 Pulse Oximetry 91 L 94 Oxygen Delivery Method Room Air Nasal Cannula Oxygen Flow Rate 2 08/07/23 23:19 08/08/23 00:23 08/08/23 03:16 Temperature 97.8 F 97.1 F Pulse Rate 103 H 103 H 101 H Respiratory Rate 20 20 20 Blood Pressure 142/86 H 125/74 Pulse Oximetry 93 94 Oxygen Delivery Method Nasal Cannula Nasal Cannula Oxygen Flow Rate 1 1 08/08/23 07:24 08/08/23 07:47 08/08/23 11:16 Temperature 97.2 F 97.0 F Pulse Rate 104 H 105 H 100 Respiratory Rate 17 18 18 Blood Pressure 120/67 109/61 Pulse Oximetry 95 95 Oxygen Delivery Method Room Air Nasal Cannula Oxygen Flow Rate 1 08/08/23 11:17 08/08/23 15:10 08/08/23 15:36 Temperature 97.2 F Pulse Rate 100 96 107 H Respiratory Rate 18 18 18 Blood Pressure 133/61 Pulse Oximetry 93 Oxygen Delivery Method Nasal Cannula Oxygen Flow Rate 1 BMI result Body Mass Index 29.3 Labs 08/07/23 12:20 08/07/23 12:20 Labs: Laboratory Results - last 48 hr 08/07/23 08/07/23 08/07/23 11:14 12:20 18:30 WBC 9.8 RBC 5.33 Hgb 15.2 Hct 45.6 MCV 85.6 MCH 28.5 MCHC 33.3 RDW 12.4 Plt Count 195 MPV 10.4 Immature Gran % (Auto) 0.4 Neut % (Auto) 83.7 H Lymph % (Auto) 6.0 L [place] % (Auto) 6.0 Eos % (Auto) 3.6 Baso % (Auto) 0.3 Lymph # (Auto) 0.6 L [place] # (Auto) 0.6 Eos # (Auto) 0.4 Baso # (Auto) 0.0 Abs Immat Gran (auto) 0.04 H Absolute Neuts (auto) 8.2 Absolute Nucleated RBC 0.000 Nucleated RBC % (auto) 0.0 D-Dimer High Sensitivty 290 Sodium 138 Potassium 4.2 Chloride 101 Carbon Dioxide 27 Anion Gap 14 BUN 13 Creatinine 0.88 Estim Creat Clear Calc 129.7 Estimated GFR > 60 Random Glucose 100 Lactic Acid 2.6 H* Lactic Acid F/U @ 2Hr Calcium 9.8 Total Bilirubin 0.8 AST 19 ALT 14 Alkaline Phosphatase 65 Total Protein 8.0 Albumin 4.5 TSH 0.59 Respiratory Panel [place] Adenovirus (Rapid PCR) B.pert (TEM-PCR) B.parapertussis DNA PCR C. pneumoniae DNA (PCR) Coronavirus OC43 (PCR) Coronavirus HKU1 (PCR) Coronavirus 229E (PCR) Coronavirus NL63 (PCR) Human Metapneumovir PCR Influenza A (RT-PCR) Influenza Type A (PCR) NEGATIVE Influenza B (RT-PCR) Influenza Type B (PCR) NEGATIVE M. pneumoniae (PCR) Parainfluenza 1 (PCR) Parainfluenza 2 (PCR) Parainfluenza 3 (PCR) Parainfluenza 4 (PCR) RSV (PCR) RSV RNA Qual (PCR) NEGATIVE Entero/Rhino (PCR) SARS-CoV-2 RNA (RT-PCR) NEGATIVE 08/07/23 08/07/23 08/08/23 19:44 21:04 13:45 WBC RBC Hgb Hct MCV MCH MCHC RDW Plt Count MPV Immature Gran % (Auto) Neut % (Auto) Lymph % (Auto) [place] % (Auto) Eos % (Auto) Baso % (Auto) Lymph # (Auto) [place] # (Auto) Eos # (Auto) Baso # (Auto) Abs Immat Gran (auto) Absolute Neuts (auto) Absolute Nucleated RBC Nucleated RBC % (auto) D-Dimer High Sensitivty Sodium Potassium Chloride Carbon Dioxide Anion Gap BUN Creatinine Estim Creat Clear Calc Estimated GFR Random Glucose Lactic Acid Lactic Acid F/U @ 2Hr 1.9 Calcium Total Bilirubin AST ALT Alkaline Phosphatase Total Protein Albumin TSH Respiratory Panel [place] Cancelled See Note Adenovirus (Rapid PCR) Cancelled Not Detected B.pert (TEM-PCR) Cancelled Not Detected B.parapertussis DNA PCR Cancelled Not Detected C. pneumoniae DNA (PCR) Cancelled Not Detected Coronavirus OC43 (PCR) Cancelled Not Detected Coronavirus HKU1 (PCR) Cancelled Not Detected Coronavirus 229E (PCR) Cancelled Not Detected Coronavirus NL63 (PCR) Cancelled Not Detected Human Metapneumovir PCR Cancelled Not Detected Influenza A (RT-PCR) Cancelled Not Detected Influenza Type A (PCR) Influenza B (RT-PCR) Cancelled Not Detected Influenza Type B (PCR) M. pneumoniae (PCR) Cancelled Not Detected Parainfluenza 1 (PCR) Cancelled Not Detected Parainfluenza 2 (PCR) Cancelled Not Detected Parainfluenza 3 (PCR) Cancelled Not Detected Parainfluenza 4 (PCR) Cancelled Not Detected RSV (PCR) Cancelled Not Detected RSV RNA Qual (PCR) Entero/Rhino (PCR) Cancelled Detected A SARS-CoV-2 RNA (RT-PCR) Cancelled Not Detected Imaging Radiology Impressions: ITS Impressions Chest X-Ray 08/07/23 11:05 IMPRESSION: Unremarkable examination, without interval change. Chest CTA 08/07/23 14:30 IMPRESSION: No evidence of pulmonary embolism. Scattered areas of mild bronchial wall thickening and soft tissue opacification suggestive of bronchitis. No evidence of pneumonia. 3 mm left lower lobe nodule stable from 2020 exam. No imaging follow-up recommended. VTE: negative Mental Status Exam Mental Status Exam Patient Appearance: Well Grooomed and Appropriate Level of Consciousness: Awake and Appropriate Patient Behavior: Appropriate Mood Description: Calm Affect Description: Calm Ability to Follow Directions: Excellent Speech Pattern: Clear Thought Process: Intact Thought Content: positive for Intact Judgement: Good Medications Medications Current Medications Acetaminophen (Acetaminophen 325 Mg Tablet) 650 mg PO Q6H PRN PRN Reason: Pain, Mild (Pain Scale 1-3) Benzonatate (Benzonatate 100 Mg Capsule) 100 mg PO TID PRN PRN Reason: Cough Last Admin: 08/07/23 21:45 Dose: 100 mg Docusate Sodium (Docusate Sodium 100 Mg Capsule) 100 mg PO DAILY PRN PRN Reason: Constipation Enoxaparin Sodium (Enoxaparin Sodium 40 Mg/0.4 Ml Syringe) 40 mg SUBCUT Q24H [facility] Last Admin: 08/07/23 18:53 Dose: 40 mg Ceftriaxone Sodium 1 gm/ (Sodium Chloride) 50 mls @ 100 mls/hr IV Q24H [facility] Levalbuterol HCl (Levalbuterol Hcl 1.25 Mg/3 Ml Vial.Neb) 1.25 mg INHALE RQ4H [facility] Last Admin: 08/08/23 15:07 Dose: 1.25 mg Melatonin (Melatonin 3 Mg Tablet) 6 mg PO BEDTIME PRN PRN Reason: Insomnia Methadone HCl (Methadone Hcl 20 Mg/2 Ml Oral.Conc) 85 mg PO DAILY [facility] Last Admin: 08/08/23 12:17 Dose: 85 mg Methylprednisolone Sodium Succinate (Methylprednisolone Sod Succ 40 Mg/Ml Vial) 40 mg IVPUSH Q12H [facility] Last Admin: 08/08/23 09:31 Dose: 40 mg Ondansetron HCl (Ondansetron Hcl 4 Mg/2 Ml Vial) 4 mg IVPUSH Q8H PRN PRN Reason: Nausea and Vomiting Tiotropium [place] (Tiotropium [place] 2.5 Mcg 1 Puff/2.5 Mcg Mist.Inhal) 2 puff INHALE RDAILY [facility] Last Admin: 08/08/23 07:23 Dose: 2 puff Allergies Allergies Allergy/AdvReac Type Severity Reaction Status Date / Time No Known Allergies Allergy Verified 08/07/23 10:28 [No Known Allergies*] Assessment & Plan Assessment & Plan (1) Opioid use disorder: Status: Acute Code(s): F11.90 - Opioid use, unspecified, uncomplicated Assessment and Plan: methadone 85mg QD verified by RN and resumed patient well connected to recovery supports no follow up indicated at this time Total time managing care of this patient today _25___ minutes. PMFSH Past Medical History Medical History (Updated 08/08/23 @ 16:03 by Lilliana Nolasco CNP) Opioid use disorder Moderate persistent asthma Asthma Social History Social History Household Members: Children and Other Household Members Other:: girlfriend Housing: Apartment Do you presently have visiting nurse or other home services: No Alcohol intake: never Patient Tobacco Use Status: Never used Tobacco Smoked in Last 30 Days: No Use of substances other than those prescribed or required for medical reasons: Yes Substance Use Type: Heroin Last Used Substance: Days (ago) Currently Displaying Signs/Symptoms of Drug Intoxication Withdrawal: No Have you been hit, kicked, punched, or otherwise hurt by someone within the past year? If so, by whom?: No Do you feel safe in your current relationship?: Yes Is there a partner from a previous relationship who is making you feel unsafe now?: No Are you made to feel afraid or neglected: No Advance Directives: No Advance Directives Information Provided: No Do you have a plan to hurt others: No Plan Recently lost weight without trying: No Eating poorly because of decreased appetite: No Nutrition Risks: No Nutritional Risk service: No
[2023-08-08] MEDS: Enoxaparin Sodium 40 MG/0.4 ML SYRINGE SUBCUT (19:14)
[2023-08-08] MEDS: cefTRIAXone sodium 1 GM in 0.9 % Sodium Chloride 50 ML IV (19:14)
[2023-08-09 03:29] VITALS: BP 112/68; PULSE 85; RESP 16; TEMP 36.3; O2SAT 94
[2023-08-09] MEDS: levalbuterol HCL 1.25 MG/3 ML VIAL.NEB INHALE ×3 (04:24→11:28)
[2023-08-09 04:25] VITALS: PULSE 85; RESP 16; O2SAT 95
[2023-08-09] MEDS: Tiotropium Bromide 2.5 mcg 1 PUFF/2.5 MCG MIST.INHAL 2 PUFF INHALE (07:40)
[2023-08-09 07:41] VITALS: PULSE 81; RESP 16; O2SAT 94
[2023-08-09 08:00] VITALS: BP 122/72; PULSE 100; RESP 20; TEMP 36.1; O2SAT 97
[2023-08-09] MEDS: methADONE HCl 20 MG/2 ML ORAL.CONC 85 MG PO (08:44)
[2023-08-09] MEDS: methylPREDNISolone Sod Succ 40 MG/ML VIAL IVPUSH (08:44)
[2023-08-09 11:28] VITALS: PULSE 94; RESP 18; O2SAT 93
[2023-08-09 12:00] VITALS: BP 125/75; PULSE 99; RESP 20; TEMP 36.3; O2SAT 92
--- NOTE | 2023-08-09 13:46 | MHC.CM.PN ---
Patient has been medically cleared for dc to home today, self care.
--- NOTE | 2023-08-09 13:48 | PM.DS ---
DS: Providers Provider Date of Service: 08/09/23 Date of admission: 08/07/23 17:49 Date of discharge: 08/09/23 Primary care physician: Unknown Physician Consults: 08/08/23 07:34 Addiction Medicine Routine Consulting Provider: Addiction Covering Reason for consultation: pt states he is on methadone, hx of opioid Attending physician on discharge: Elina Castellon Discharging clinician: Elina Castellon DS: Diagnosis Discharge Diagnosis (1) Bronchitis: Status: Acute (2) Hypoxia: Status: Acute (3) Asthma with exacerbation: Status: Acute DS: Summary Hospital Course Hospital Course: 33-year-old Hungarian-speaking male with a PMH significant for?moderate persistent asthma and opioid use disorder on methadone who presents to the ED for evaluation of shortness of breath and difficulty breathing x3 days. Patient reports has been experiencing increased shortness of breath, RAYGOZA, and wheezing not sufficiently alleviated by home inhalers. Also reports productive cough of whitish-clear phlegm. ?Denies chest pain/pressure, palpitations. No fever, chills, nausea, vomiting, abdominal pain. Of note, patient reports recently starting methadone. States he is ?in the process of cleaning up?, last snorted heroin 2 days prior on Saturday08/05/2023. In the ED pt was tachycardic up to 132, tachypneic up to 28, slightly hypertensive to 141/88, and hypoxic as low as 85% RA. Labs were significant for mildly elevated D-dimer of 290, otherwise grossly unremarkable. No leukocytosis. Stable H& H. No electrolyte abnormalities. Renal and hepatic function baseline. Tested negative for influenza, RSV, and COVID. CXR was unremarkable, without interval change. CTA of chest found no evidence of pulmonary embolism or pneumonia, but showed mild bronchial wall thickening and soft tissue opacification suggestive of bronchitis. Pt was treated with DuoNebs, Mag sulfate, Solu-Medrol, and albuterol. Pt will be admitted to the hospital for treatment and further evaluation of acute hypoxic respiratory failure in the setting of acute asthma exacerbation with bronchitis Hospital course: Acute hypoxic respiratory failure in the setting of asthma exacerbation(moderate persistent asthma) with acute bronchitis:patient started on nebs,steriods ,antibiotics ,oxygen, viral panel -seems to be imrpoved wiith above supportive care ,respirtaory panel came back-uri(rhino/entero). Blood culture negative at 24 hours, no fever ,no leukocytosis.Cta showed -possible brnchitis. Acute lactic acidosis related to nebs, resolved. patient will be going home with ceftin 500 mg po bid x5 days ,prednisone po 40 mg dailyx5 days. follow up with pcp outpatient. plan: home with ceftin 500 mg po bid x5 days ,prednisone po 40 mg dailyx5 days. Above management discussed with the patient in detail length she understand and in agreement with the above plan, time spent 40 minutes and 50% time spent on counseling. Time Attestation Total time managing care of this patient today: 40 mintues. Discharge Coordination Time (in mins): 40 min Quality: Safe Use of Opioids Does Pt have an Active Cancer Diagnosis on the Problem List?: No Quality: Stroke Does the patient have a stroke diagnosis?: No Physical Exam Vital Signs: Vital Signs: Last Vital Signs Temp 97.4 F 08/09/23 12:00 Pulse 99 08/09/23 12:00 Resp 20 08/09/23 12:00 BP 125/75 08/09/23 12:00 Pulse Ox 92 08/09/23 12:00 O2 Del Method Room Air 08/09/23 12:00 O2 Flow Rate 1 08/09/23 08:00 BMI result Body Mass Index 29.3 Appearance: Alert.? Oriented X3.? cvs: rrr, [id number] , no murmur res: clear to auscultation ,no rhonchii or wheezing abd: no rebound or guarding ,nt, bs present. ext pulses present , no cyanosis . neuro: axo3 , nonfocal. DS: Data Data Completed and Pending Labs on day of discharge: Laboratory Results - last 24 hr 08/08/23 13:45 Respiratory Panel [place] See Note Adenovirus (Rapid PCR) Not Detected B.pert (TEM-PCR) Not Detected B.parapertussis DNA PCR Not Detected C. pneumoniae DNA (PCR) Not Detected Coronavirus OC43 (PCR) Not Detected Coronavirus HKU1 (PCR) Not Detected Coronavirus 229E (PCR) Not Detected Coronavirus NL63 (PCR) Not Detected Human Metapneumovir PCR Not Detected Influenza A (RT-PCR) Not Detected Influenza B (RT-PCR) Not Detected M. pneumoniae (PCR) Not Detected Parainfluenza 1 (PCR) Not Detected Parainfluenza 2 (PCR) Not Detected Parainfluenza 3 (PCR) Not Detected Parainfluenza 4 (PCR) Not Detected RSV (PCR) Not Detected Entero/Rhino (PCR) Detected A SARS-CoV-2 RNA (RT-PCR) Not Detected Preliminary micro results at discharge 08/07/23 18:40 Blood Culture - Preliminary Blood - Venous No growth after 24 hours. 08/07/23 18:30 Blood Culture - Preliminary Blood - Venous No growth after 24 hours. Imaging Chest x-ray: Radiologist's impression: ITS Impressions Chest X-Ray 08/07/23 11:05 IMPRESSION: Unremarkable examination, without interval change. Chest CTA 08/07/23 14:30 IMPRESSION: No evidence of pulmonary embolism. Scattered areas of mild bronchial wall thickening and soft tissue opacification suggestive of bronchitis. No evidence of pneumonia. 3 mm left lower lobe nodule stable from 2020 exam. No imaging follow-up recommended. VTE: negative Discharge Plan Discharge Anticipated Discharge Date/Time: 08/09/23 13:39 Patient Disposition: Home, Self-Care Discharge Diagnosis: AHRF sec to asthma moderate persistent excerebation and viral uri , possible acute bacterial brinchitis Referrals: Physician,Unknown J [Primary Care Provider] - 2 days Discharge Medications: New prednisone 20 mg tablet 40 mg PO DAILY 5 Days Qty: 10 0RF albuterol sulfate 90 mcg/actuation aerosol powdr breath activated 2 inh inhalation Q4-6H PRN (Reason: shortness of breath or wheezing) Qty: 1 0RF cefuroxime axetil 500 mg tablet 500 mg PO BID Qty: 10 0RF Continued albuterol sulfate 2.5 mg /3 mL (0.083 %) solution for nebulization 2.5 mg inhalation Q4-6H PRN (Reason: shortness of breath or wheezing) Qty: 90 0RF methadone [Methadone Intensol] 10 mg/mL Concentrate 85 mg PO DAILY Discharge Orders: Discharge Order (Routine); Ordered 08/09/23 Ordered By: Elina Castellon Diet: Advance to usual diet Activity on Discharge: As tolerated Stand Alone Forms: Patient Portal Discharge page, Work/School Release Print Language: Hungarian Activity Restrictions/Additional Instructions: Take your medications as prescribed. If you were prescribed antibiotics today, it is important that you take your medication to their entirety, do not skip any doses, do not finish them early. Follow-up with your primary care provider this week. Return to the emergency department with new or worsening symptoms. Such as fevers, chills, chest pain, shortness of breath, nausea, vomiting, dizziness, headache, vision changes, lethargy In case of emergency call 911 Care Plan Goals: Acute hypoxic respiratory failure in the setting of asthma exacerbation(moderate persistent asthma) with acute bronchitis:patient started on nebs,steriods ,antibiotics ,oxygen, viral panel -seems to be imrpoved wiith above supportive care ,respirtaory panel came back-uri(rhino/entero). patient will be going home with ceftin 500 mg po bid x5 days ,prednisone po 40 mg dailyx5 days. follow up with pcp outpatient. Health Concerns: as above. Plan of Treatment: as above. Assessment: as above. Patient Instructions: Asthma (ED), How to Use a Nebulizer (ED), Wheezing (ED)
== END 2023-08-09 14:47 | disposition home or self-care (01) | DRG 202 ==
LOC: HO.ED 17:00 → HO.EDOVER 18:13 → HO.IMC 19:32
PROVIDERS: Physician Assistant; Admitting Provider Student in an Organized Health Care Education/Training Program; Emergency Provider Emergency Medicine; Visit Provider Internal Medicine
DX: J45.41 Moderate persistent asthma with (acute) exacerbation (principal); J96.01 Acute respiratory failure with hypoxia; F11.20 Opioid dependence, uncomplicated; B97.10 Unspecified enterovirus as the cause of diseases classified elsewhere; J20.9 Acute bronchitis, unspecified; Z20.822 Contact with and (suspected) exposure to COVID-19; Z79.899 Other long term (current) drug therapy
CPT/HCPCS: 0241U; 36415; 71045; 71275; 80053; 83605; 84443; 85025; 85379; 87040; 87633; 94640; 99285; J0696; J1650; J2919; J3475; Q9967

== ENCOUNTER → 2023-08-07 17:49 | Outpatient (BNV) | payer SELFPAY | PROVIDERS: Admitting Provider Student in an Organized Health Care Education/Training Program; Emergency Provider Emergency Medicine; Visit Provider Student in an Organized Health Care Education/Training Program | DX: J45.901 Unspecified asthma with (acute) exacerbation (principal); R09.02 Hypoxemia | CPT/HCPCS: 99223; 99232; 99239 ==

== ENCOUNTER → 2023-08-07 17:49 | Outpatient (BNV) | payer SELFPAY | PROVIDERS: Admitting Provider Student in an Organized Health Care Education/Training Program; Emergency Provider Emergency Medicine; Visit Provider Nurse Practitioner Psychiatric/Mental Health | DX: F11.90 Opioid use, unspecified, uncomplicated (principal) | CPT/HCPCS: 99221 ==